=== PATIENT | female | born 1950 | race Caucasian/White ===

== ENCOUNTER 2016-11-16 20:19 | Emergency (ER) | payer OTHER, MEDICARE ==
[2016-11-16 20:34] VITALS: BP 198/84; PULSE 76; RESP 16; TEMP 97.6
--- NOTE | 2016-11-16 21:09 | XR ---
EXAMINATION TYPE: XR hand complete LT DATE OF EXAM: 11/16/2016 COMPARISON: NONE HISTORY: Bruising and pain TECHNIQUE: 3 views FINDINGS: There is soft tissue swelling on the dorsum of the hand. Metacarpals appear intact. I see n o fracture nor dislocation. IMPRESSION: Soft tissue swelling. No fracture seen.
--- NOTE | 2016-11-16 21:21 | ED ---
Upper Extremity HPI - General Chief Complaint: Extremity Injury, Upper Stated Complaint: Lump on L hand Time Seen by Provider: 11/16/16 20:57 Source: patient Mode of arrival: ambulatory Limitations: no limitations - History of Present Illness Initial Comments: Patient is a right-handed 66-year-old female presenting to the emergency department with complaints of hematoma to dorsum of left hand. Patient states she was playing with her grandkids and may hit her hand against a refrigerator early on in the afternoon. Patient states that approximately 20 minutes prior to arrival she noticed that her left hand started developing a hematoma. Patient currently denies pain. No history of fevers, chills, recent illness, nausea, vomiting, shortness of breath, chest pain, abdominal pain, numbness or tingling. Patient states she is able to move all her fingers. Patient states she applied ice prior to arrival. No history of similar symptoms. - Related Data Home Medications Medication Instructions Recorded Confirmed Aspirin 81 mg PO DAILY 01/22/14 11/16/16 Atenolol [Tenormin] 25 mg PO DAILY 01/22/14 11/16/16 Chlorthalidone [Hygroton] 25 mg PO DAILY 01/22/14 11/16/16 Gabapentin 600 mg PO DAILY 01/22/14 11/16/16 Glimepiride [Amaryl] 2 mg PO AC-BRKFST 01/22/14 11/16/16 Losartan Potassium 100 mg PO DAILY 01/22/14 11/16/16 Magnesium Oxide [Mag-Ox] 400 mg PO DAILY 01/22/14 11/16/16 Montelukast [Singulair] 10 mg PO DAILY 01/22/14 11/16/16 Omeprazole [PriLOSEC] 20 mg PO AC-BRKFST 01/22/14 11/16/16 Pramipexole [Pramipexole 1 mg PO ONCE 01/22/14 11/16/16 Dihydrochloride] metFORMIN HCL [metFORMIN HCL ER] 1,000 mg PO AC-SUPPER 01/22/14 11/16/16 Previous Rx's Medication Instructions Recorded Clindamycin HCl [Cleocin] 300 mg PO Q6HR #40 cap 01/22/14 Allergies Allergy/AdvReac Type Severity Reaction Status Date / Time adhesive Allergy Rash/Hives Verified 01/22/14 09:35 sulfamethoxazole Allergy Rash/Hives Verified 01/22/14 09:35 [From Bactrim] trimethoprim [From Bactrim] Allergy Rash/Hives Verified 01/22/14 09:35 albuterol AdvReac Unknown Verified 01/22/14 09:35 atorvastatin calcium AdvReac Unknown Verified 01/22/14 09:35 [From Lipitor] Review of Systems ROS Statement: Those systems with pertinent positive or pertinent negative responses have been documented in the HPI. ROS Other: All systems not noted in ROS Statement are negative. Past Medical History Past Medical History: Diabetes Mellitus, Hyperlipidemia, Hypertension Additional Past Medical History / Comment(s): RESTLESS LEGS History of Any Multi-Drug Resistant Organisms: None Reported Past Surgical History: Cholecystectomy, Tubal Ligation Additional Past Surgical History / Comment(s): SKIN CANCER REMOVAL Past Psychological History: No Psychological Hx Reported Smoking Status: Never smoker Past Alcohol Use History: None Reported Past Drug Use History: None Reported General Exam - General Exam Comments Initial Comments: GENERAL: Pt awake and alert, well-appearing, well-nourished, and in no acute distress. HEAD: Atraumatic, normocephalic. EYES: Pupils equal, round, sclera anicteric, conjunctiva are normal. ENT: Oropharynx clear without exudates. Moist mucous membranes. NECK:Normal range of motion, supple without lymphadenopathy. LUNGS: Breath sounds clear to auscultation bilaterally. No wheezes, rales, or rhonchi. HEART: Heart S1, S2, no S3 or S4. Regular rate and rhythm. No murmurs, rubs or gallops. ABDOMEN: Soft, nontender, nondistended, normoactive bowel sounds. No guarding, no rebound. No masses or organomegaly appreciated. MUSCULOSKELETAL: Normal ROM, no tenderness. Strength 5/5. Left hand: Full range of motion. Hematoma to the dorsal aspect of left hand extending from just below the third metacarpal to wrist. NEUROLOGICAL: Pt oriented x 3. Cranial nerves II through XII grossly intact. Strength and sensation grossly intact. PSYCH: Normal mood, normal affect. SKIN: Warm, dry, intact. Normal turgor. Limitations: no limitations Course Vital Signs 11/16/16 20:30 Temperature 97.6 F Pulse Rate 76 Respiratory 16 Rate Blood Pressure 198/84 O2 Sat by Pulse 96 Oximetry Medical Decision Making - Medical Decision Making Hematoma to left dorsal hand. X-ray of left hand with evidence of soft tissue swelling without fracture or dislocation. Patient instructed to continue ice, elevation, and Tylenol for pain if needed. Patient instructed to follow-up with primary care physician. Patient started to return to the emergency department with any new or worsening symptoms such as skin breaking, fevers, numbness or tingling, or significant pain. Patient agrees with treatment plan. Discharge instructions and return parameters reviewed. - Radiology Data Radiology results: report reviewed X-ray left hand: Soft tissue swelling on the dorsum of the hand. Metacarpals appear intact. No fracture or dislocation. Disposition Clinical Impression: Contusion of left hand Disposition: HOME SELF-CARE Condition: Good Instructions: Contusion in Adults (ED) Additional Instructions: Continue ice packs 3-4 times a day for 15-20 minutes. Continue Tylenol for pain. Elevate extremity is much as possible next 24-48 hours. Follow-up with primary care physician as directed. Please return to the emergency department if you notice broken skin, increased numbness or tingling, hand getting cold, increased pain. Referrals: Gill Melo MD [Primary Care Provider] - 1-2 days Time of Disposition: 21:34
== END 2016-11-16 21:39 | disposition home or self-care (01) ==
LOC: EC 20:19
DX: S60.222A Contusion of left hand, initial encounter (principal); W22.8XXA Striking against or struck by other objects, initial encounter; E11.9 Type 2 diabetes mellitus without complications; E78.5 Hyperlipidemia, unspecified; I10 Essential (primary) hypertension; Z79.899 Other long term (current) drug therapy; Z79.82 Long term (current) use of aspirin; Z79.84 Long term (current) use of oral hypoglycemic drugs; Z88.1 Allergy status to other antibiotic agents; Z88.2 Allergy status to sulfonamides; Z88.8 Allergy status to other drugs, medicaments and biological substances; G25.81 Restless legs syndrome; Z85.828 Personal history of other malignant neoplasm of skin
CPT/HCPCS: 99283

== ENCOUNTER → 2017-06-13 | Outpatient (CLI) | payer OTHER, MEDICARE ==
--- NOTE | 2017-06-14 10:38 | BD ---
EXAMINATION TYPE: MG DEXA axial skeleton. DATE OF EXAM: 06/13/2017 COMPARISON: NONE CLINICAL HISTORY: Postmenopausal female. Osteoporosis screening. Height: 61 Weight: 220.5 FRAX RISK QUESTIONS: Alcohol (3 or more units per day): no Family History (Parent hip fracture): no Glucocorticoids (More than 3mos): no (Ex: prednisone, prednisolone, methylprednisolone, dexamethasone, and hydrocortisone). History of Fracture in Adulthood: no Secondary Osteoporosis: 1. Type 1 Diabetes: no 2. Hyperthyroidism: no 3. Menopause before 45: no 4. Malnutrition: no 5. Chronic liver disease: no Rheumatoid Arthritis: no Current Tobacco Use: no RISK FACTORS HISTORY OF: Surgery to Spine/Hip(right/left)/Wrist (right/left): no Family History of Osteoporosis: no Active: yes Diet low in dairy products/other sources of calcium: no Postmenopausal woman: age 46 Lost more than 2 inches in height since high school: no Frequent falls: no Poor Health: no Hyperparathyroidism: no Adrenal Insufficiency: no MEDICATIONS: diabetic meds, blood pressure meds, neurotin, acid reflux med Additional History: EXAM MEASUREMENTS: Bone mineral densitometry was performed using the [facility] System. Bone mineral density as measured about the Lumbar spine is: ----- L1-L4(G/cm2): 1.598 T Score Values are as follows: ----- L2: 2.8 ----- L3: 3.3 ----- L4: 3.9 ----- L1-L4: 3.3 Bone mineral density has: baseline Bone mineral density about the R hip (g/cm2): 1.060 Bone mineral density about the L hip (g/cm2): 0.972 T Score values are as follows: -----R Neck: 0.2 -----L Neck: -0.5 -----R Total: 0.7 -----L Total: 0.6 Bone mineral density has: : baseline IMPRESSION: Normal (Values between +1 and -1 indicate normal bone mass). Consider repeating this study in 5 year s or sooner if there is some new clinical indication. NOTE: T-SCORE=SD OF THE YOUNG ADULT MEAN.
--- NOTE | 2017-06-19 07:54 | MM ---
Reason for exam: screening (asymptomatic). Last mammogram was performed 4 years and 9 months ago. History: Patient is postmenopausal and history of other cancer. Family history of breast cancer in daughter at age 32. Physical Findings: A clinical breast exam by your physician is recommended on an annual basis and results should be correlated with mammographic findings. MG 3D Screening Mammo W/Cad Bilateral CC and MLO view(s) were taken. Prior study comparison: August 26, 2012, mammogram, performed at [facility]. August 14, 2012, mammogram, performed at [facility]. There are scattered fibroglandular densities. No suspicious abnormality. No significant changes when compared with prior studies. ASSESSMENT: Negative, BI-RAD 1 RECOMMENDATION: Routine screening mammogram of both breasts in 1 year.
== END | disposition home or self-care (01) ==
LOC: RADMAMWWP 12:43
PROVIDERS: ATTEND Family Medicine
DX: Z12.31 Encounter for screening mammogram for malignant neoplasm of breast (principal); Z78.0 Asymptomatic menopausal state
CPT/HCPCS: 77063; 77067; 77080

== ENCOUNTER → 2017-12-03 | Outpatient (CLI) | payer MEDICARE, OTHER ==
[2017-12-03 12:01] LABS: HGB 13.8 gm/dL (11.4-16.0); MCH 27.4 pg (25.0-35.0); MCHC 32.9 g/dL (31.0-37.0); MCV 83.5 fL (80.0-100.0); Mean Platelet Volume 8.1; Platelet Count 357 k/uL (150-450); RBC 5.03 m/uL (3.80-5.40); RDW 13.7 % (11.5-15.5); WBC 6.7 k/uL (3.8-10.6)
[2017-12-03 12:21] LABS: Appearance,Urine Cloudy (Clear); Bacteria,Urine Moderate /hpf; Bilirubin,Urine Negative (Negative); Blood,Urine Negative (Negative); Color,Urine Yellow; Glucose,Urine (UA) Negative (Negative); INR 1.1 (<1.2); Ketones,Urine Negative (Negative); Leukocyte Esterase,Urine Small (Negative); Mucus,Urine Occasional /hpf; Nitrite,Urine Negative (Negative); PH, Urine 6.5 (5.0-8.0); Partial Thromboplastin Time 22.7 sec (22.0-30.0); Protein,Urine Negative (Negative); Prothrombin Time 10.7 sec (9.0-12.0); Specific Gravity,Urine 1.016 (1.001-1.035); Squamous Epithelial Cell,Urine 10 /hpf (0-4); WBC,Urine 5 /hpf (0-5)
[2017-12-03 12:23] LABS: ALT 93 U/L (9-52); AST 107 U/L (14-36); Alkaline Phosphatase 73 U/L (38-126); Anion Gap 13 mmol/L; Blood Urea Nitrogen 15 mg/dL (7-17); Calcium 9.8 mg/dL (8.4-10.2); Carbon Dioxide 26 mmol/L (22-30); Chloride 100 mmol/L (98-107); Glucose 178 mg/dL (74-99); Sodium 139 mmol/L (137-145); Total Bilirubin 0.3 mg/dL (0.2-1.3); Total Protein 6.8 g/dL (6.3-8.2)
== END | disposition home or self-care (01) ==
LOC: LABPAT 11:07
PROVIDERS: ATTEND Orthopaedic Surgery
DX: Z01.812 Encounter for preprocedural laboratory examination (principal); Z79.01 Long term (current) use of anticoagulants
CPT/HCPCS: 36415; 80053; 81001; 85027; 85610; 85730; 87070

== ENCOUNTER 2017-12-17 05:38 | Inpatient (IN) | payer MEDICARE, OTHER ==
[2017-12-04 13:35] VITALS: BMI 41.1
[~2017-12-17 05:38] MED LIST: MIDAZOLAM 2 MG/2 ML VIAL IV PRN; ceFAZolin IN SWFI 2 GM/20 ML SYRINGE IVP ONE; fentaNYL (PF) 50 MCG/ML 2 ML AMP IV PRN
[2017-12-17] MEDS: LACTATED RINGERS 1,000 ML IV SCH ×4 (06:49→18:44)
[2017-12-17] MEDS ORDERED: LIDOCAINE 1% 20 ML VIAL (10MG/ML) FOR IV START INTRADERMA ONE (06:50)
[2017-12-17 06:51] LABS: Glucose,Whole Blood 193 mg/dL (75-99)
[2017-12-17] MEDS: ONDANSETRON 4 MG/2 ML VIAL IVP ONE ×2 (07:03→11:18)
[2017-12-17] MEDS: DEXAMETHASONE SOD PHOSPHATE 10 MG/ML 1 ML VIAL IV ONE ×2 (07:03→11:18)
[2017-12-17] MEDS ORDERED: DEXTROSE 50%-WATER 50 ML VIAL IV ONE (07:36)
[2017-12-17] MEDS ORDERED: BUPIVACAINE (PF) 0.75% 10 ML VIAL ONE (07:36)
[2017-12-17] MEDS ORDERED: MORPHINE SULFATE (PF) 0.3 MG/0.3 ML SYR ONE (07:36)
[2017-12-17] MEDS ORDERED: fentaNYL (PF) 50 MCG/ML 2 ML AMP ONE (07:36)
[2017-12-17] MEDS ORDERED: MIDAZOLAM 2 MG/2 ML VIAL ONE (07:36)
[2017-12-17] MEDS ORDERED: ceFAZolin 3,000 MG in SODIUM CHLORIDE 0.9% IRRIGATIO 3,000 ML IRRIGATION ONE (08:09)
[2017-12-17] MEDS ORDERED: LACTATED RINGERS 1,000 ML IV ONE (08:59)
[2017-12-17 10:04] LABS: Glucose,Whole Blood 233 mg/dL (75-99)
[2017-12-17] MEDS ORDERED: INSULIN ASPART 100 UNIT/ML 1 ML 10 ML VIAL SQ ONE (10:20)
--- NOTE | 2017-12-17 10:30 | XR ---
Left knee HISTORY: Status post total knee arthroplasty 2 views of the left knee Bone mineralization is maintained. Patient is status post left knee arthroplasty. There is anatomic a lignment. Lucency in the soft tissues compatible with postop state, there is soft tissue swelling. IMPRESSION: Orthopedic follow-up.
[2017-12-17] MEDS ORDERED: BISACODYL 10 MG SUPP RECTAL PRN (10:33)
[2017-12-17] MEDS ORDERED: MAGNESIUM HYDROXIDE 2,400 MG/10 ML CUP PO PRN (10:33)
[2017-12-17] MEDS ORDERED: HYDROmorphone 1 MG/ML 1 ML SYRINGE IVP PRN ×2 (10:33)
[2017-12-17] MEDS ORDERED: HYDROcodone/APAP 5-325MG 1 EACH TAB PO PRN (10:33)
[2017-12-17] MEDS ORDERED: NA PHOS,M-B/NA PHOS,DI-BA 133 ML ENEMA RECTAL PRN (10:33)
[2017-12-17] MEDS ORDERED: NALOXONE 0.4 MG/ML 1 ML VIAL IV PRN (10:33)
[2017-12-17] MEDS ORDERED: TEMAZEPAM 15 MG CAP PO PRN (10:33)
[2017-12-17] MEDS ORDERED: ONDANSETRON 4 MG/2 ML VIAL IVP PRN (10:33)
[2017-12-17 11:26] LABS: Glucose,Whole Blood 236 mg/dL (75-99)
[2017-12-17] MEDS: HYDROcodone/APAP 5-325MG 1 EACH TAB PO PRN ×2 (11:38→18:18)
[2017-12-17] MEDS: HYDROmorphone 1 MG/ML 1 ML SYRINGE IVP PRN ×3 (12:29→19:48)
[2017-12-17] MEDS: metFORMIN 500 MG TAB PO SCH (12:59)
[2017-12-17] MEDS: INSULIN ASPART 100 UNIT/ML 1 ML 10 ML VIAL SQ SCH ×3 (12:59→21:14)
[2017-12-17] MEDS: ceFAZolin IN SWFI 2 GM/20 ML SYRINGE IVP SCH (15:47)
[2017-12-17] MEDS: OXYBUTYNIN CHLORIDE 5 MG TAB PO SCH ×3 (15:48→21:14)
[2017-12-17] MEDS: GABAPENTIN 400 MG CAP PO SCH ×3 (15:48→21:13)
--- NOTE | 2017-12-17 16:18 | CONS ---
CONSULTATION REASON FOR CONSULTATION: Advice regarding diabetes mellitus and other medical issues requested by Dr. Perdomo. HISTORY OF PRESENT ILLNESS: This is a 67-year-old woman with a past medical history of multiple medical problems, history of diabetes mellitus, DVT, GERD, hypertension, hyperlipidemia, being followed by Dr. Gill Melo in the outpatient setting was admitted after left total knee arthroplasty. Blood sugars are slightly elevated in 200s at this time. The patient also complaining of severe pain also. There is no history of fever, rigors. No headache, loss of consciousness, seizures. PAST MEDICAL HISTORY: Diabetes, DVT, GERD, hypertension, history of DJD, restless legs syndrome. MEDICATIONS: Prior to admission include home medications are: 1. Dulcolax. 2. Metformin 1000 mg p.o. b.i.d. 3. Mirapex 1 mg q.h.s. 4. Iron sulfate 1 p.o. daily. 5. Ditropan 5 mg p.o. q.i.d. 6. Prilosec 20 mg a.c. breakfast. 7. Magnesium oxide 400 mg p.o. daily. 8. Losartan 100 mg p.o. daily. 9. Tradjenta 5 mg p.o. daily. 10.Amaryl 2 mg q.h.s. 11.Gabapentin 200 mg p.o. q.i.d. 12.Hygroton 25 mg p.o. daily. 13.Tenormin 25 mg. 14.Aspirin 81 mg p.o. daily. ALLERGIES: Are BACTRIM, ALBUTEROL, LIPITOR. FAMILY HISTORY: History of skin cancer. SOCIAL HISTORY: No history of smoking. No alcohol intake. REVIEW OF SYSTEMS: ENT: No diminished or vision. CARDIOVASCULAR: No angina. RESPIRATORY: No cough. GI: No nausea. : No dysuria. NERVOUS SYSTEM: No numbness or weakness. ALLERGY/IMMUNOLOGY: No asthma. MUSCULOSKELETAL: As mentioned earlier. HEMATOLOGY/ONCOLOGY: No history of anemia. ENDOCRINE: As mentioned earlier. CONSTITUTIONAL: As mentioned. DERMATOLOGY: Negative. RHEUMATOLOGY: Negative. PSYCHIATRY: As mentioned earlier. PHYSICAL EXAMINATION: Alert, oriented x3. Pulse 70, blood pressure 116/54, respirations 16, temperature 97.4, pulse ox 94% on room air. HEENT: Conjunctivae normal. Oral mucosa moist. NECK: No jugular venous distention. No carotid bruit. No lymph node enlargement. CARDIOVASCULAR: S1, S2. RESPIRATORY: Breath sounds diminished in the bases. No rhonchi, no crackles. ABDOMEN: Soft, nontender. No mass palpable. LEGS: Status post left knee arthroplasty. NERVOUS SYSTEM: Higher functions as mentioned. Moves all 4 limbs. No focal motor deficits. LYMPHATICS: No lymphadenopathy in the neck, axillae, groin. SKIN: No ulcer, rashes or bleeding. LABS: At this time shows glucose 230, 330. ASSESSMENT: 1. Status post left total knee arthroplasty. 2. Diabetes mellitus type 2. 3. Deep venous thrombosis history. 4. History of gastroesophageal reflux disease. 5. Hypertension. 6. History of degenerative joint disease. 7. Sleep apnea. 8. Restless leg syndrome. 9. History of CPAP. 10.History of cholecystectomy. 11.History of cardiac catheterization. 12.FULL CODE. RECOMMENDATIONS AND DISCUSSION: In this 67-year-old woman who presented with multiple medical problems, at this time I recommend to continue current management and symptomatic treatment. Otherwise at this time I recommend resume the diabetes medication. Accu-Cheks a.c., at bedtime and NovoLog scale. DVT prophylaxis. Monitor closely. Pain management per Orthopedic Surgery. Further recommendations to follow. MMODL / IJN: [id number] /
[2017-12-17 16:59] LABS: Glucose,Whole Blood 282 mg/dL (75-99)
[2017-12-17] MEDS ORDERED: WARFARIN 5 MG TAB PO ONE (18:00)
[2017-12-17 20:50] LABS: Glucose,Whole Blood 290 mg/dL (75-99)
[2017-12-17] MEDS: SENNOSIDES-DOCUSATE SODIUM 1 EACH TAB PO SCH (21:13)
[2017-12-17] MEDS: GLIMEPIRIDE 2 MG TAB PO SCH (21:14)
[2017-12-17] MEDS: PRAMIPEXOLE 1 MG TAB PO SCH (21:14)
[2017-12-18] MEDS: HYDROcodone/APAP 5-325MG 1 EACH TAB PO PRN ×4 (00:03→20:57)
[2017-12-18] MEDS: ceFAZolin IN SWFI 2 GM/20 ML SYRINGE IVP SCH (00:03)
[2017-12-18] MEDS: HYDROmorphone 1 MG/ML 1 ML SYRINGE IVP PRN ×2 (03:55→10:16)
[2017-12-18] MEDS: LACTATED RINGERS 1,000 ML IV SCH ×3 (03:57→18:17)
[2017-12-18 07:06] LABS: Glucose,Whole Blood 186 mg/dL (75-99)
[2017-12-18 07:20] LABS: Basophils % (A) 0 %; Eosinophils # (A) 0.1 k/uL (0-0.7); Eosinophils % (A) 1 %; HCT 35.5 % (34.0-46.0); HGB 11.5 gm/dL (11.4-16.0); Lymphocytes # (A) 2.4 k/uL (1.0-4.8); Lymphocytes % (A) 24 %; MCHC 32.4 g/dL (31.0-37.0); MCV 83.4 fL (80.0-100.0); Mean Platelet Volume 8.2; Monocytes # (A) 0.5 k/uL (0-1.0); Monocytes % (A) 5 %; Neutrophils # (A) 6.8 k/uL (1.3-7.7); Neutrophils % (A) 69 %; Platelet Count 316 k/uL (150-450); RBC 4.25 m/uL (3.80-5.40); RDW 13.7 % (11.5-15.5); WBC 9.9 k/uL (3.8-10.6)
[2017-12-18 07:28] LABS: INR 1.5 (<1.2); Prothrombin Time 13.9 sec (9.0-12.0)
--- NOTE | 2017-12-18 08:54 | P.PN ---
Subjective Progress Note Date: 12/18/17 Principal diagnosis: Status post left total knee arthroplasty This is a 67 year-old female post left total knee arthroplasty. This is post- op day 1. The patient was evaluated at the bedside today. The patient denies nausea, vomiting, abdominal pain, shortness of breath, and chest pain this morning. She states her pain is controlled at this time. The patient has not been up with physical therapy. Objective - Vital Signs Vital signs: Vital Signs Temp 97.4 F L 12/18/17 08:34 Pulse 91 12/18/17 08:34 Resp 16 12/18/17 08:34 BP 114/54 12/18/17 08:34 Pulse Ox 92 L 12/18/17 08:34 Intake & Output 12/17/17 12/18/17 12/18/17 18:59 06:59 18:59 Intake Total 1701 Output Total 300 950 Balance 1401 -950 Weight 98.883 kg 98.883 kg Intake: IV 1201 Intake, IV Titration 500 Amount Lactated Ringers 1,000 ml 500 @ 100 mls/hr IV .Q10H [facility] Rx#:[id number] Output: Urine 150 950 Estimated Blood Loss 150 Other: Voiding Method Indwelling Catheter Indwelling Catheter - Exam The patient does not appear in acute distress. Alert and orientated x3. Dressing is clean dry and intact. Incision appears fine with no erythema or active drainage. Calf is soft and nontender. Good foot and ankle motion without difficulty. Sensation and circulatory status is intact. - Labs CBC & Chem 7: 12/18/17 06:52 Labs: Abnormal Lab Results - Last 24 Hours (Table) 12/17/17 12/17/17 12/17/17 Range/Units 10:02 11:23 16:55 POC Glucose (mg/dL) 233 H 236 H 282 H (75-99) mg/dL 12/17/17 12/18/17 Range/Units 20:42 07:00 POC Glucose (mg/dL) 290 H 186 H (75-99) mg/dL Assessment and Plan (1) Primary localized osteoarthritis of left knee Current Visit: Yes Status: Acute Code(s): M17.12 - UNILATERAL PRIMARY OSTEOARTHRITIS, LEFT KNEE SNOMED Code(s): 681453412 (2) Status post total knee replacement, left Current Visit: Yes Status: Acute Code(s): Z96.652 - PRESENCE OF LEFT ARTIFICIAL KNEE JOINT SNOMED Code(s): 3363542927633 Plan: 1. Continue pain control 2. Anticoagulation with Coumadin per protocol 3. Start CPM, physical therapy, and ambulation 4. Anticipate discharge home in the next 1-2 days
[2017-12-18] MEDS: INSULIN ASPART 100 UNIT/ML 1 ML 10 ML VIAL SQ SCH ×4 (08:58→20:58)
[2017-12-18] MEDS: metFORMIN 500 MG TAB PO SCH ×2 (08:59→19:11)
[2017-12-18] MEDS: ATENOLOL 25 MG TAB PO SCH (09:00)
[2017-12-18] MEDS: ASPIRIN 81 MG PO SCH (09:00)
[2017-12-18] MEDS: CHLORTHALIDONE 25 MG TAB PO SCH (09:00)
[2017-12-18] MEDS: PANTOPRAZOLE 40 MG TABLET PO SCH (09:00)
[2017-12-18] MEDS: LINAGLIPTIN 5 MG TABLET PO SCH (09:01)
[2017-12-18] MEDS: LOSARTAN 50 MG TAB PO SCH (09:02)
[2017-12-18] MEDS: MAGNESIUM OXIDE 400 MG TAB PO SCH (09:03)
[2017-12-18] MEDS: OXYBUTYNIN CHLORIDE 5 MG TAB PO SCH ×4 (09:03→20:58)
[2017-12-18] MEDS: GABAPENTIN 400 MG CAP PO SCH ×4 (09:08→20:57)
[2017-12-18 11:45] LABS: Glucose,Whole Blood 265 mg/dL (75-99)
--- NOTE | 2017-12-18 12:49 | PN ---
PROGRESS NOTE DATE OF SERVICE: 12/18/2017 This 67-year-old woman was admitted after left total knee arthroplasty improved significantly. No chest pain or palpitation. No fever. PHYSICAL EXAM: On exam, alert and oriented x3. Pulse is 91, blood pressure 114/54, respiration 16, temperature 97.4, pulse ox 92% on room air. HEENT: Conjunctivae normal. NECK: No jugular venous distention. CARDIOVASCULAR: S1 and S2 muffled. RESPIRATORY: Breath sounds diminished at the bases. No rhonchi, no crackles. ABDOMEN: Soft. LEGS: Status post surgery. NERVOUS SYSTEM: No focal deficits. LABS: INR 1.5. Accu-Cheks noted, 186, 265. ASSESSMENT: 1. Status post left total knee arthroplasty. 2. Diabetes mellitus type 2. 3. History of deep vein thrombosis. 4. History of gastroesophageal reflux disease. 5. Hypertension. 6. History of degenerative joint disease. 7. Sleep apnea. 8. Restless leg syndrome. 9. History of CPAP. 10.History of cholecystectomy. 11.History of cardiac catheterization. 12.FULL CODE. RECOMMENDATIONS AND DISCUSSION: Recommend to continue current medications. Continue with monitoring and symptomatic treatment. Otherwise at this time I recommend continue with current medications. Monitor blood sugars, insulin coverage. Otherwise hemoglobin A1c is not available. Recommend close follow up in the outpatient setting. DVT prophylaxis. Incentive spirometry. Further recommendations to follow. MMODL / IJN: [id number] /
[2017-12-18 13:23] LABS: Hemoglobin A1C 7.9 % (4.0-6.0)
[2017-12-18] MEDS: hydrOXYzine PAMOATE 25 MG CAP PO PRN ×2 (14:24→20:58)
[2017-12-18 16:59] LABS: Glucose,Whole Blood 164 mg/dL (75-99)
[2017-12-18] MEDS ORDERED: WARFARIN 5 MG TAB PO ONE (18:00)
[2017-12-18 19:53] LABS: Glucose,Whole Blood 183 mg/dL (75-99)
[2017-12-18] MEDS: SENNOSIDES-DOCUSATE SODIUM 1 EACH TAB PO SCH (20:57)
[2017-12-18] MEDS: PRAMIPEXOLE 1 MG TAB PO SCH (20:58)
[2017-12-18] MEDS: GLIMEPIRIDE 2 MG TAB PO SCH (20:58)
[2017-12-19 00:45] LABS: Glucose,Whole Blood 134 mg/dL (75-99)
[2017-12-19] MEDS: HYDROmorphone 1 MG/ML 1 ML SYRINGE IVP PRN (01:09)
[2017-12-19] MEDS: LACTATED RINGERS 1,000 ML IV SCH ×5 (03:48→23:52)
[2017-12-19 06:50] LABS: INR 1.6 (<1.2); Prothrombin Time 14.9 sec (9.0-12.0)
[2017-12-19 06:53] LABS: Glucose,Whole Blood 184 mg/dL (75-99)
[2017-12-19] MEDS: ATENOLOL 25 MG TAB PO SCH (08:36)
[2017-12-19] MEDS: GABAPENTIN 400 MG CAP PO SCH ×4 (08:36→21:45)
[2017-12-19] MEDS: metFORMIN 500 MG TAB PO SCH ×2 (08:36→17:48)
[2017-12-19] MEDS: OXYBUTYNIN CHLORIDE 5 MG TAB PO SCH ×4 (08:37→21:45)
[2017-12-19] MEDS: ASPIRIN 81 MG PO SCH (08:37)
[2017-12-19] MEDS: INSULIN ASPART 100 UNIT/ML 1 ML 10 ML VIAL SQ SCH ×4 (08:37→21:44)
[2017-12-19] MEDS: MAGNESIUM OXIDE 400 MG TAB PO SCH (08:37)
[2017-12-19] MEDS: LOSARTAN 50 MG TAB PO SCH (08:37)
[2017-12-19] MEDS: HYDROcodone/APAP 5-325MG 1 EACH TAB PO PRN (08:37)
[2017-12-19] MEDS: LINAGLIPTIN 5 MG TABLET PO SCH (08:38)
[2017-12-19] MEDS: CHLORTHALIDONE 25 MG TAB PO SCH (08:38)
[2017-12-19] MEDS: PANTOPRAZOLE 40 MG TABLET PO SCH (08:39)
[2017-12-19] MEDS: hydrOXYzine PAMOATE 25 MG CAP PO PRN ×2 (08:44→19:11)
[2017-12-19] MEDS ORDERED: HYDROcodone/APAP 7.5-325MG 1 EACH TAB PO PRN (08:56)
--- NOTE | 2017-12-19 09:01 | P.PN ---
Subjective Progress Note Date: 12/19/17 Principal diagnosis: Status post left total knee arthroplasty This is a 67 year-old female post left total knee arthroplasty. This is post- op day 2. The patient was evaluated at the bedside today. The patient denies nausea, vomiting, abdominal pain, shortness of breath, and chest pain this morning. She states her pain is moderately controlled at this time. The patient has been up with physical therapy. Objective - Vital Signs Vital signs: Vital Signs Temp 97.6 F 12/19/17 00:31 Pulse 100 12/19/17 00:31 Resp 17 12/19/17 00:31 BP 136/60 12/19/17 00:31 Pulse Ox 93 L 12/19/17 00:31 Intake & Output 12/18/17 12/19/17 12/19/17 18:59 06:59 18:59 Intake Total 600 400 Balance 600 400 Weight 98.883 kg Intake: Intake, IV Titration 100 Amount Lactated Ringers 1,000 ml 100 @ 100 mls/hr IV .Q10H [facility] Rx#:[id number] Oral 500 400 Other: # Voids 1 - Exam The patient does not appear in acute distress. Alert and orientated x3. Dressing is intact. There is slight sanginous drainage from the proximal end of the incision. Incision appears fine with no erythema or active drainage. Calf is soft and nontender. Good foot and ankle motion without difficulty. Sensation and circulatory status is intact. - Labs CBC & Chem 7: 12/18/17 06:52 Labs: Abnormal Lab Results - Last 24 Hours (Table) 12/18/17 12/18/17 12/18/17 Range/Units 06:52 06:52 11:43 PT 13.9 H (9.0-12.0) sec INR 1.5 H (<1.2) POC Glucose (mg/dL) 265 H (75-99) mg/dL Hemoglobin A1c 7.9 H (4.0-6.0) % 12/18/17 12/18/17 12/19/17 Range/Units 16:52 19:48 00:43 PT (9.0-12.0) sec INR (<1.2) POC Glucose (mg/dL) 164 H 183 H 134 H (75-99) mg/dL Hemoglobin A1c (4.0-6.0) % 12/19/17 12/19/17 Range/Units 06:29 06:50 PT 14.9 H (9.0-12.0) sec INR 1.6 H (<1.2) POC Glucose (mg/dL) 184 H (75-99) mg/dL Hemoglobin A1c (4.0-6.0) % Assessment and Plan (1) Primary localized osteoarthritis of left knee Current Visit: Yes Status: Acute Code(s): M17.12 - UNILATERAL PRIMARY OSTEOARTHRITIS, LEFT KNEE SNOMED Code(s): 919975229 (2) Status post total knee replacement, left Current Visit: Yes Status: Acute Code(s): Z96.652 - PRESENCE OF LEFT ARTIFICIAL KNEE JOINT SNOMED Code(s): 4016422703602 Plan: 1. Continue pain control, increase to [place] 7.5 2. Anticoagulation with Coumadin per protocol 3. Continue CPM, physical therapy, and ambulation 4. Anticipate discharge home with homecare, likely tomorrow.
[2017-12-19 11:11] LABS: Glucose,Whole Blood 242 mg/dL (75-99)
--- NOTE | 2017-12-19 13:53 | PN ---
PROGRESS NOTE DATE OF SERVICE: 12/19/2017. INTERVAL HISTORY: This 67-year-old woman was admitted after left total knee arthroplasty, improved significantly. No chest pain. No palpitations. No fever. PHYSICAL EXAM: Alert and oriented x3. Pulse is 106. Blood pressure 116/65, respiration 18, temperature 98.8, pulse ox 98% on 2 L. HEENT: Conjunctivae normal. NECK: No jugular venous distention. CARDIOVASCULAR: S1, S2. RESPIRATORY: Breath sounds diminished in the bases. No rhonchi, no crackles. ABDOMEN: Soft, nontender. LEGS: No edema, status post surgery. NERVOUS SYSTEM: No focal deficits. LABS: Hemoglobin A1c 7.9. Glucose noted. ASSESSMENT: 1. Status post left total knee arthroplasty. 2. Diabetes type 2. 3. History of deep vein thrombosis. 4. History of gastroesophageal reflux disease. 5. Hypertension. 6. History of degenerative joint disease. 7. Sleep apnea. 8. History of restless legs syndrome. 9. History of CPAP. 10.History of cholecystectomy. 11.History of cardiac catheterization. 12.FULL CODE. RECOMMENDATIONS AND DISCUSSION: I recommend to continue with monitoring, symptomatic treatment. I would recommend resume the home medications. Accu-Cheks a.c. and at bedtime and continue to monitor. Closely follow with the primary physician in the outpatient setting. Recommend follow up with Orthopedic Surgery. MMODL / IJN: [id number] /
[2017-12-19 17:08] LABS: Glucose,Whole Blood 157 mg/dL (75-99)
[2017-12-19] MEDS ORDERED: WARFARIN 5 MG TAB PO ONE (18:00)
[2017-12-19] MEDS: HYDROcodone/APAP 7.5-325MG 1 EACH TAB PO PRN (19:11)
[2017-12-19 20:39] LABS: Glucose,Whole Blood 187 mg/dL (75-99)
[2017-12-19] MEDS: GLIMEPIRIDE 2 MG TAB PO SCH (21:44)
[2017-12-19] MEDS: SENNOSIDES-DOCUSATE SODIUM 1 EACH TAB PO SCH (21:45)
[2017-12-19] MEDS: PRAMIPEXOLE 1 MG TAB PO SCH (21:45)
[2017-12-20] MEDS: HYDROcodone/APAP 7.5-325MG 1 EACH TAB PO PRN (05:55)
[2017-12-20] MEDS: hydrOXYzine PAMOATE 25 MG CAP PO PRN (05:55)
[2017-12-20 07:10] LABS: Basophils % (A) 0 %; Eosinophils # (A) 0.2 k/uL (0-0.7); Eosinophils % (A) 2 %; HCT 31.5 % (34.0-46.0); HGB 10.4 gm/dL (11.4-16.0); Lymphocytes # (A) 2.3 k/uL (1.0-4.8); Lymphocytes % (A) 22 %; MCH 26.9 pg (25.0-35.0); MCHC 33.1 g/dL (31.0-37.0); MCV 81.2 fL (80.0-100.0); Mean Platelet Volume 8.1; Monocytes # (A) 0.7 k/uL (0-1.0); Monocytes % (A) 6 %; Neutrophils # (A) 7.1 k/uL (1.3-7.7); Neutrophils % (A) 68 %; Platelet Count 280 k/uL (150-450); RBC 3.88 m/uL (3.80-5.40); RDW 13.9 % (11.5-15.5); WBC 10.5 k/uL (3.8-10.6)
[2017-12-20 07:13] LABS: Glucose,Whole Blood 167 mg/dL (75-99)
[2017-12-20 07:14] LABS: INR 1.6 (<1.2); Prothrombin Time 14.6 sec (9.0-12.0)
[2017-12-20 07:15] VITALS: BP 112/63; PULSE 96; RESP 18; TEMP 98.8
[2017-12-20] MEDS: LACTATED RINGERS 1,000 ML IV SCH (07:54)
[2017-12-20] MEDS: OXYBUTYNIN CHLORIDE 5 MG TAB PO SCH (08:05)
[2017-12-20] MEDS: GABAPENTIN 400 MG CAP PO SCH (08:05)
[2017-12-20] MEDS: ATENOLOL 25 MG TAB PO SCH (08:05)
[2017-12-20] MEDS: metFORMIN 500 MG TAB PO SCH (08:05)
[2017-12-20] MEDS: ASPIRIN 81 MG PO SCH (08:05)
[2017-12-20] MEDS: PANTOPRAZOLE 40 MG TABLET PO SCH (08:05)
[2017-12-20] MEDS: INSULIN ASPART 100 UNIT/ML 1 ML 10 ML VIAL SQ SCH (08:05)
[2017-12-20] MEDS: LOSARTAN 50 MG TAB PO SCH (08:05)
[2017-12-20] MEDS: MAGNESIUM OXIDE 400 MG TAB PO SCH (08:05)
[2017-12-20] MEDS: CHLORTHALIDONE 25 MG TAB PO SCH (08:51)
[2017-12-20] MEDS: LINAGLIPTIN 5 MG TABLET PO SCH (08:51)
--- NOTE | 2017-12-20 09:17 | P.DS ---
Providers Date of admission: 12/17/17 05:38 Expected date of discharge: 12/20/17 Attending physician: Jorge Perdomo Consults: 12/17/17 10:37 Consult Physician Routine Consulting Provider: Gill Melo Consult Reason/Comments: medical management Do you want consulting provider notified?: Yes 12/17/17 10:47 Consult Physician Routine Consulting Provider: Brisa Severino Consult Reason/Comments: medical management Do you want consulting provider notified?: Yes Primary care physician: Gill Melo - Discharge Diagnosis(es) (1) Primary localized osteoarthritis of left knee Current Visit: Yes Status: Acute (2) Status post total knee replacement, left Current Visit: Yes Status: Acute Hospital Course: This is a pleasant 67-year-old female last seen in our office with complaints of left knee pain. Patient has known history of degenerative arthritis of the left knee and presented to discuss options. After discussion and consideration , the patient elected to proceed with a left total knee arthroplasty. Patient was seen preoperatively, and medically cleared for surgery by Dr. Melo. Patient was admitted to [facility] underwent left total knee arthroplasty on 12/17/[address] Perdomo. The procedure was performed without complications or sequelae. The patient is seen and evaluated at bedside today. Pain is well-controlled. Patient has no new complaints today and denies any fevers, chills, nausea, vomiting, or shortness of breath. Vital signs are stable. Dressing is clean dry and intact. Incision looks fine with no erythema or active drainage. There is bleeding and ecchymosis present. Calf is soft and nontender. Patient has full foot and ankle motion without difficulty. Patient's left lower extremity is neurovascularly intact. The patient is orthopedically stable for discharge today. Pertinent Studies: Laboratory Tests 12/20/17 12/20/17 06:41 06:41 WBC 10.5 RBC 3.88 Hgb 10.4 L Hct 31.5 L PT 14.6 H INR 1.6 H Patient Condition at Discharge: Stable Plan - Discharge Summary Discharge Rx Participant: No New Discharge Prescriptions: New Aspirin 325 mg PO DAILY #30 tab Hydrocodone/Acetaminophen [[place] 7.5-325] 1 - 2 tab PO Q4-6H PRN #84 tab PRN Reason: Pain Sennosides-Docusate Sodium [Senokot-S] 2 tab PO DAILY #30 tablet Warfarin [Coumadin] 2.5 mg PO DIRECTED #30 tab No Action metFORMIN HCL [metFORMIN HCL ER] 1,000 mg PO BID Omeprazole [PriLOSEC] 20 mg PO AC-[facility] Chlorthalidone [Hygroton] 25 mg PO DAILY Magnesium Oxide [Mag-Ox] 400 mg PO DAILY Glimepiride [Amaryl] 2 mg PO HS Atenolol [Tenormin] 25 mg PO DAILY Aspirin 81 mg PO DAILY Losartan Potassium 100 mg PO DAILY Gabapentin 1,200 mg PO QID Pramipexole [Mirapex] 1 mg PO HS Oxybutynin Chloride [Ditropan] 5 mg PO QID Linagliptin [Tradjenta] 5 mg PO DAILY Pnv No.95/Ferrous Fum/Folic AC [ Multivitamin Tablet] 1 tab PO DAILY Discharge Medication List Aspirin 81 mg PO DAILY 01/22/14 [History] Atenolol [Tenormin] 25 mg PO DAILY 01/22/14 [History] Chlorthalidone [Hygroton] 25 mg PO DAILY 01/22/14 [History] Gabapentin 1,200 mg PO QID 01/22/14 [History] Glimepiride [Amaryl] 2 mg PO HS 01/22/14 [History] Losartan Potassium 100 mg PO DAILY 01/22/14 [History] Magnesium Oxide [Mag-Ox] 400 mg PO DAILY 01/22/14 [History] Omeprazole [PriLOSEC] 20 mg PO -KFST 01/22/14 [History] metFORMIN HCL [metFORMIN HCL ER] 1,000 mg PO BID 01/22/14 [History] Linagliptin [Tradjenta] 5 mg PO DAILY 12/04/17 [History] Oxybutynin Chloride [Ditropan] 5 mg PO QID 12/04/17 [History] Pnv No.95/Ferrous Fum/Folic AC [ Multivitamin Tablet] 1 tab PO DAILY [History] Pramipexole [Mirapex] 1 mg PO HS 12/04/17 [History] Aspirin 325 mg PO DAILY #30 tab 12/20/17 [Rx] Hydrocodone/Acetaminophen [[place] 7.5-325] 1 - 2 tab PO Q4-6H PRN #84 tab [Rx] Sennosides-Docusate Sodium [Senokot-S] 2 tab PO DAILY #30 tablet 12/20/17 [Rx] Warfarin [Coumadin] 2.5 mg PO DIRECTED #30 tab 12/20/17 [Rx] Follow up Appointment(s)/Referral(s): Jorge Perdomo DO [Doctor of Osteopathic Medicine] - 12/31/17 1:30 pm [facility], [NON-STAFF] - Ambulatory/Diagnostic Orders: Continuous Passive Motion (CPM) Machine [DME.AMB1] Time Frame: 3 Weeks, Location : None Selected Activity/Diet/Wound Care/Special Instructions: Glucometer - [facility]- will deliver to bedside before discharge -Check blood sugars before every meal and at bedtime. Keep a log and take to Dr. Melo at next appointment. Call [facility] once home to arrange delivery of CPM- [phone] Weightbearing as tolerated with a walker Coumadin 2.5 mg 1 by mouth every other day for 7 days then take Aspirin 325mg daily for 1 month CPM 5-6 hours daily-Start CPM at 45 degrees then increase by 5 degrees every time on CPM as patient tolerates. Maximum total of 15 degrees every 24 hours. May shower in 3 days if no drainage from incision Keep incision clean and dry Call [facility] at with questions or concerns Discharge Disposition: HOME WITH HOME HEALTH SERVICES
--- NOTE | 2017-12-20 15:12 | OP ---
OPERATIVE REPORT DATE OF SERVICE: 12/17/2017 SURGEON: DIONY PASTOR D.O. BOAT HOIST OPERATOR HELPER: Henrietta Wells NP PREOPERATIVE DIAGNOSIS:: Degenerative joint disease of the left knee. POSTOPERATIVE DIAGNOSIS:: Degenerative joint disease of the left knee. OPERATION:: Left total knee replacement arthroplasty. PROCEDURE: The patient was taken to the Operative Suite and placed in the supine position. Spinal anesthesia was performed by the Department of Anesthesiology. Betadine prep was carried out over the left knee, mid thigh to mid calf. Sterile drapes applied in the usual manner. Pneumatic tourniquet was inflated to 250 mmHg. A medial parapatellar incision was developed. The medial retinaculum is incised through synovium. Patella is everted and dislocated laterally. The knee was brought in flexion and held in position with leg martin. An intramedullary cutting guide was utilized in preparation for a size 7 left femoral component. The appropriate femoral cut is developed. Provisionary component was impacted in position. The components alignment and stability were well maintained. Tibial cutting guide was brought into position and appropriate wafer cut developed. The menisci, both medial and lateral were excised. A size 4 tibial tray was selected. The 12mm spacer inserted and marked for position. The tray was monitored for position. Appropriate peg hole was drilled in the proximal tibia. The patella was then shaped with a shelving planer. Size 29 mm was selected and the stabilizing peg hole was marked and drilled. A lateral retinacular release was performed through the general position deep in the further tracking should be excellent. Pulsavac antibiotic solution was utilized in preparation for final components. The final size 4 trabecular metal three-hole peg was placed in predrilled holes and the tibial component was intact. Final size 7 left component was packed into position. The patellar component 12 mm placed in predrilled holes and packed in. A final size 12 mm polyethylene component was inserted in position. Appropriate irrigation of the knee was slightly in flexion. The superficial opening of wound and lateral area of retinacular release was cauterized. Hemostasis was well controlled. Tourniquet deflated. The medial retinaculum was approximated with #3 Vicryl suture horizontal mattress fashion. #2 Quill suture was utilized in reinforcing retinaculum in running fashion. 2- 0 Vicryl was utilized for closure of subcuticular tissue. 3-0 Quill suture was utilized in securing the closure. Dermabond was utilized to seal the wound. Betadine, pressure dressing was applied. Tourniquet was deflated and the patient was transferred to Recovery Room in satisfactory postoperative condition. GROSS PATHOLOGY: Presence of tricompartment of degenerative joint disease of the left knee. MMODL / IJN: [id number] / MTDD
[2017-12-20] MEDS ORDERED: WARFARIN 7.5 MG TAB PO ONE (18:00)
--- NOTE | 2017-12-21 09:55 | PN ---
PROGRESS NOTE DATE OF SERVICE: 12/21/2017 This 67-year-old woman was admitted with left knee arthroplasty, improving significantly. No chest pain. No palpitations. No fever. EXAM: Alert and oriented x3. The pulse is 96, blood pressure 112/66, respiration 18, temperature 98.8, pulse ox 94% on room air. HEENT: Conjunctivae normal. CARDIOVASCULAR: S1, S2. RESPIRATORY: Breath sounds diminished in the bases. No rhonchi, no crackles. ABDOMEN: Soft. LEGS: Status post left knee arthroplasty. NERVOUS SYSTEM: No focal deficits. LABS: Hemoglobin 10.4, INR 1.6. ASSESSMENT: 1. Status post left total knee joint arthroplasty. 2. Diabetes mellitus type 2. 3. History of deep vein thrombosis. 4. History of anemia of chronic disease. 5. History of gastroesophageal reflux disease. 6. History of hypertension. 7. History of degenerative joint disease. 8. History of sleep apnea. 9. History of restless leg syndrome. 10.History of CPAP. 11.History of cholecystectomy. 12.History of cardiac catheterization. 13.FULL CODE. RECOMMENDATIONS AND DISCUSSION: I recommend to continue current management and symptomatic treatment. Otherwise I would continue with current medications. Resume the home medications. Closely follow with primary physician in outpatient setting. The rest of the recommendations per Orthopedic Surgery. Further recommendations to follow. MMODL / IJN: [id number] /
== END 2017-12-20 11:58 | disposition home health service (06) | DRG 470 ==
LOC: 2ORMAIN 05:38 → 3SUR 09:57
PROVIDERS: ADMIT Orthopaedic Surgery; ATTEND Orthopaedic Surgery
PROC: 0SRD0JA Replacement of Left Knee Joint with Synthetic Substitute, Uncemented, Open Approach (ICD-10-PCS; principal; 2017-12-17 08:00)
DX: M17.12 Unilateral primary osteoarthritis, left knee (principal); M23.204 Derangement of unspecified medial meniscus due to old tear or injury, left knee; E11.42 Type 2 diabetes mellitus with diabetic polyneuropathy; D63.8 Anemia in other chronic diseases classified elsewhere; I10 Essential (primary) hypertension; E78.5 Hyperlipidemia, unspecified; G47.33 Obstructive sleep apnea (adult) (pediatric); K21.9 Gastro-esophageal reflux disease without esophagitis; G25.81 Restless legs syndrome; Z79.84 Long term (current) use of oral hypoglycemic drugs; Z79.01 Long term (current) use of anticoagulants; Z79.82 Long term (current) use of aspirin; Z79.899 Other long term (current) drug therapy; Z98.51 Tubal ligation status; Z90.49 Acquired absence of other specified parts of digestive tract; Z85.828 Personal history of other malignant neoplasm of skin; Z86.718 Personal history of other venous thrombosis and embolism; Z88.2 Allergy status to sulfonamides; Z88.8 Allergy status to other drugs, medicaments and biological substances; Z82.49 Family history of ischemic heart disease and other diseases of the circulatory system; Z83.3 Family history of diabetes mellitus
CPT/HCPCS: 83036; 85025; 85610; 88300; 94760

== ENCOUNTER → 2018-07-11 | Outpatient (CLI) | payer MEDICARE, OTHER ==
--- NOTE | 2018-07-11 12:30 | XR ---
Cervical spine HISTORY: Dysphagia, pain in left shoulder, left-sided neck and left arm 5 views of the cervical spine. No comparisons Cervical vertebral bodies show preserved height and alignment. C7-T1 is not included on exam. There i s no significant foraminal encroachment. There may be a thoracic scoliosis. Patient is edentulous. Vi sualized disc spaces are maintained. Anterior osteophytes are suspected at C4-5 and C5-6 and C6-7. IMPRESSION: There are some limitations the exam. Cervical MRI or CT may be of benefit.
--- NOTE | 2018-07-11 12:33 | XR ---
Left shoulder HISTORY: Dysphagia, left arm pain and diabetes 3 views of the left shoulder Arthropathy present at the acromioclavicular joint. Calcifications seen superior to the glenohumeral joint. Alignment and bone mineralization, joint spaces maintained. Distal acromial spur is present. L eft lung apex as unremarkable, basilar atelectatic changes are suspected. No fracture or dislocation. IMPRESSION: Correlate for impingement, calcific tendinitis. Shoulder MRI may be of benefit. Possible left lower lobe atelectasis, follow-up suggested.
--- NOTE | 2018-07-11 15:33 | FL ---
EXAMINATION TYPE: FL barium swallow DATE OF EXAM: 07/11/2018 CLINICAL HISTORY: Dysphasia COMPARISON: None TECHNIQUE: A double contrast esophagram is performed utilizing air and barium. Fluoroscopy time: 1 minute 19 seconds Images: 28 FINDINGS: Esophagus dilates to normal caliber has normal contour to the gastroesophageal junction. Th ere are tertiary contractions observed during the study. No stenosis is evident. No intraluminal or e xtramural defects are evident. There is incomplete stripping of the esophageal bolus the horizontal drinking position. IMPRESSION: 1. Presbyesophagus with incomplete stripping of the esophageal bolus in the horizontal drinking posit ion and multiple tertiary contractions distal esophagus.
== END | disposition home or self-care (01) ==
LOC: RADFLWHC 07:58
PROVIDERS: ATTEND Family Medicine
DX: K22.8 Other specified diseases of esophagus (principal); E11.21 Type 2 diabetes mellitus with diabetic nephropathy; M79.602 Pain in left arm; M54.2 Cervicalgia
CPT/HCPCS: 72050; 74220

== ENCOUNTER → 2018-07-16 | Outpatient (CLI) | payer MEDICARE, OTHER ==
[2018-07-16 15:15] LABS: HCT 41.5 % (34.0-46.0); HGB 13.3 gm/dL (11.4-16.0); MCH 26.3 pg (25.0-35.0); MCV 82.2 fL (80.0-100.0); Mean Platelet Volume 7.8; Platelet Count 444 k/uL (150-450); RBC 5.05 m/uL (3.80-5.40); RDW 14.7 % (11.5-15.5); WBC 12.6 k/uL (3.8-10.6)
[2018-07-16 15:26] LABS: Anion Gap 13 mmol/L; Blood Urea Nitrogen 15 mg/dL (7-17); Carbon Dioxide 30 mmol/L (22-30); Chloride 93 mmol/L (98-107); Partial Thromboplastin Time 23.6 sec (22.0-30.0); Potassium 3.7 mmol/L (3.5-5.1); Prothrombin Time 10.8 sec (9.0-12.0); Sodium 136 mmol/L (137-145)
== END | disposition home or self-care (01) ==
LOC: LABPAT 14:06
PROVIDERS: ATTEND Orthopaedic Surgery
DX: Z01.812 Encounter for preprocedural laboratory examination (principal)
CPT/HCPCS: 36415; 80051; 82565; 84520; 85027; 85610; 85730; 87070

== ENCOUNTER → 2018-10-13 | Outpatient (CLI) | payer MEDICARE, OTHER ==
[2018-10-13 12:22] LABS: Appearance,Urine Clear (Clear); Bacteria,Urine Rare /hpf; Bilirubin,Urine Negative (Negative); Blood,Urine Negative (Negative); Budding Yeast,Urine Occasional /hpf; Color,Urine Light Yellow; Glucose,Urine (UA) 4+ (Negative); Ketones,Urine Negative (Negative); Leukocyte Esterase,Urine Negative (Negative); Mucus,Urine Rare /hpf; Nitrite,Urine Positive (Negative); PH, Urine 5.5 (5.0-8.0); Protein,Urine Negative (Negative); Specific Gravity,Urine 1.029 (1.001-1.035); Squamous Epithelial Cell,Urine 1 /hpf (0-4); Urobilinogen,Urine <2.0 mg/dL (<2.0); WBC,Urine 4 /hpf (0-5)
[2018-10-13 12:32] LABS: HCT 44.1 % (34.0-46.0); HGB 13.7 gm/dL (11.4-16.0); MCH 24.9 pg (25.0-35.0); MCHC 31.1 g/dL (31.0-37.0); MCV 80.1 fL (80.0-100.0); Mean Platelet Volume 8.7; Platelet Count 327 k/uL (150-450); RBC 5.51 m/uL (3.80-5.40); RDW 15.3 % (11.5-15.5); WBC 8.5 k/uL (3.8-10.6)
[2018-10-13 12:34] LABS: Partial Thromboplastin Time 23.7 sec (22.0-30.0); Prothrombin Time 10.6 sec (9.0-12.0)
[2018-10-13 14:53] LABS: Albumin 4.1 g/dL (3.5-5.0); Calcium 9.9 mg/dL (8.4-10.2); Potassium 3.5 mmol/L (3.5-5.1); Total Bilirubin 0.6 mg/dL (0.2-1.3); Total Protein 7.3 g/dL (6.3-8.2)
== END | disposition home or self-care (01) ==
LOC: LABPAT 10:50
PROVIDERS: ATTEND Orthopaedic Surgery
DX: Z01.818 Encounter for other preprocedural examination (principal); Z01.812 Encounter for preprocedural laboratory examination; M17.11 Unilateral primary osteoarthritis, right knee
CPT/HCPCS: 80053; 81001; 85027; 85610; 85730; 87070; 93005

== ENCOUNTER → 2018-10-13 | Outpatient (CLI) | payer MEDICARE, OTHER ==
[2018-10-13 16:33] LABS: Albumin 4.2 g/dL (3.80-4.90); Albumin/Globulin Ratio 1.62 (1.60-3.17); Bilirubin, Conjugated 0.2 mg/dL (0.20-0.40); Bilirubin,Unconjugated 0.2 mg/dL; Globulin 2.6 g/dL (1.6-3.3); Total Bilirubin 0.4 mg/dL (0.2-1.2); Total Protein 6.8 g/dL (6.2-8.2)
[2018-10-13 17:41] LABS: Hepatitis A Antibody IgM Non-Reactive (Non-Reactive); Hepatitis B Core IgM Non-Reactive (Non-Reactive)
[2018-10-13 21:14] LABS: Hemoglobin A1C 10.1 % (4.0-6.0)
== END | disposition home or self-care (01) ==
LOC: LABWHC1 10:53
PROVIDERS: ATTEND Family Medicine
DX: Z00.00 Encounter for general adult medical examination without abnormal findings (principal); R94.5 Abnormal results of liver function studies; E11.21 Type 2 diabetes mellitus with diabetic nephropathy; I10 Essential (primary) hypertension
CPT/HCPCS: 36415; 80074; 80076; 83036

== ENCOUNTER → 2018-10-16 | Outpatient (CLI) | payer MEDICARE, OTHER ==
--- NOTE | 2018-10-17 15:09 | MM ---
Reason for exam: screening (asymptomatic). Last mammogram was performed 1 year and 4 months ago. History: Patient is postmenopausal and history of other cancer. Family history of breast cancer in daughter at age 32. Took hormonal contraceptives for 1 year. Physical Findings: A clinical breast exam by your physician is recommended on an annual basis and results should be correlated with mammographic findings. MG 3D Screening Mammo W/Cad Bilateral CC and MLO view(s) were taken. Prior study comparison: June 13, 2017, bilateral MG 3d screening mammo w/cad. August 26, 2012, mammogram, performed at [facility]. There are scattered fibroglandular densities. No suspicious abnormality on the right. Left superior far posterior distortion. ASSESSMENT: Incomplete: need additional imaging evaluation, BI-RAD 0 RECOMMENDATION: Special view mammogram of the left breast. If lesion persists on supplemental views, image directed ultrasound is recommended. [facility] will attempt to contact patient to return for supplemental views and ultrasound if indicated.
== END | disposition home or self-care (01) ==
LOC: RADMAMWWP 15:07
PROVIDERS: ATTEND Family Medicine
DX: Z12.31 Encounter for screening mammogram for malignant neoplasm of breast (principal)
CPT/HCPCS: 77063; 77067

== ENCOUNTER 2018-10-21 09:30 | Day surgery (SDC) | payer MEDICARE, OTHER ==
[2018-10-14 12:20] VITALS: BMI 42.1
[~2018-10-21 09:30] MED LIST changes: +ACETAMINOPHEN TAB 500 MG TAB PO ONE; +DEXAMETHASONE SOD PHOSPHATE 10 MG/ML 1 ML VIAL IV ONE; +HYDROmorphone 0.5 MG/0.5 ML SYRINGE IVP PRN; +MELOXICAM 7.5 MG TAB PO ONE; +ONDANSETRON 4 MG/2 ML VIAL IVP ONE; +ROPIVACAINE 246.25 MG, EPINEPHrine 0.5 MG, KETOROLAC 30 MG, cloNIDine HCL/PF 80 MCG, WA... MISCELLANE ONE; +TRANEXAMIC ACID 1,000 MG in SODIUM CHLORIDE 0.9% 100 ML IVPB ONE; -fentaNYL (PF) 50 MCG/ML 2 ML AMP IV PRN
[2018-10-21] MEDS: LACTATED RINGERS 1,000 ML IV SCH (10:45)
[2018-10-21 11:13] LABS: Glucose,Whole Blood 166 mg/dL (75-99)
--- NOTE | 2018-10-21 11:15 | P.ANPRN ---
Procedure Note - Anesthesia - Nerve Block Performed Right Adductor Canal Infusion Time Out Performed: Yes (10:50) Date of Procedure: 10/21/18 Procedure Start Time: 10:51 Procedure Stop Time: 11:04 Location of Patient Procedure: PACU Indication: Acute Post-Operative Pain, Requested by physician (Dr Ravi Simmons) Sedation Type: Sedate with meaningful contact maintained Preparation: Sterile Prep, Sterile Dressing Position: Supine Catheter Depth at Skin (cm): 2 Catheter: Indwelling Needle Types: Pajunk Needle Gauge: 18 Technique: Ultrasound Injectate: 0.5% Ropivacaine (see comment for volume) (20cc) Blood Aspirated: No Pain Paresthesia on Injection Noted: No Resistance on Injection: Normal Events: Uneventful and Well Tolerated
[2018-10-21] MEDS ORDERED: fentaNYL (PF) 50 MCG/ML 2 ML AMP ONE (11:50)
[2018-10-21] MEDS ORDERED: SODIUM CHLORIDE 0.9% 100 ML BAG ONE (11:50)
[2018-10-21] MEDS ORDERED: TRANEXAMIC ACID 1,000 MG/10 ML VIAL ONE (11:50)
[2018-10-21] MEDS ORDERED: MIDAZOLAM 2 MG/2 ML VIAL ONE (11:50)
[2018-10-21] MEDS ORDERED: PROPOFOL 10 MG/ML 20 ML VIAL IV ONE (11:50)
[2018-10-21] MEDS ORDERED: ceFAZolin 3,000 MG in SODIUM CHLORIDE 0.9% IRRIGATIO 3,000 ML IRRIGATION ONE (11:53)
[2018-10-21] MEDS ORDERED: ONDANSETRON 4 MG/2 ML VIAL IVP PRN (13:16)
[2018-10-21] MEDS ORDERED: HYDROcodone/APAP 5-325MG 1 EACH TAB PO PRN ×2 (13:16)
[2018-10-21] MEDS ORDERED: NA PHOS,M-B/NA PHOS,DI-BA 133 ML ENEMA RECTAL PRN (13:16)
[2018-10-21] MEDS ORDERED: DIAZEPAM 5 MG TAB PO PRN (13:16)
[2018-10-21] MEDS ORDERED: NALOXONE 0.4 MG/ML 1 ML VIAL IV PRN (13:16)
[2018-10-21] MEDS ORDERED: BISACODYL 10 MG SUPP RECTAL PRN (13:16)
[2018-10-21] MEDS ORDERED: hydrOXYzine PAMOATE 25 MG CAP PO PRN (13:16)
[2018-10-21] MEDS ORDERED: MAGNESIUM HYDROXIDE 2,400 MG/10 ML CUP PO PRN (13:16)
[2018-10-21] MEDS ORDERED: HYDROmorphone 0.5 MG/0.5 ML SYRINGE IVP PRN ×3 (13:16)
[2018-10-21] MEDS ORDERED: LACTATED RINGERS 1,000 ML IV ONE (13:30)
--- NOTE | 2018-10-21 13:38 | P.OP ---
Date of Procedure: 10/21/18 Preoperative Diagnosis: Severe osteoarthritis right knee Postoperative Diagnosis: Severe osteoarthritis right knee Procedure(s) Performed: Right total knee arthroplasty Implants: Payan and Nephew Journey II CR Oxinium cruciate retaining femoral component size 5, right [employer]hew Journey right nonporous tibial baseplate size 4 Payan [employer]hew Journey II, XLPE CR articular insert, size 9 mm, Size 3-4 right Payan [employer]hew Journey BCS resurfacing oval patellar component, 29 mm All components were cemented using Palacos R bone cement.. The articulation is Oxinium on polyethylene. Anesthesia: spinal Surgeon: Ravi Simmons Paper Control Clerk #1: Marivel Croft Estimated Blood Loss (ml): 50 Pathology: other (Bone and cartilage) Condition: stable Disposition: PACU Indications for Procedure: After failure of conservative treatment we discussed the surgical and nonsurgical treatment options at length. Patient wishes to proceed with a total knee arthroplasty. Complications specific to this procedure were discussed at length, including but not limited to infection, bleeding, stiffness, and nerve injury. Patient is aware of all these complications and informed consent was obtained Operative Findings: The operative findings are consistent with severe osteoarthritis of the right knee Description of Procedure: Patient was seen in the preoperative area consent was reviewed and operative site was marked with a skin marker. An adductor canal pain catheter was placed by anesthesia in the preoperative area. Patient was then brought to the operating room and given preoperative antibiotics intravenously. A spinal anesthetic was administered by the anesthesia department. A tourniquet was placed on the upper thigh and the lower extremity was prepped and draped in usual sterile fashion. A gram of transexamic acid was given. A universal timeout was then performed which confirmed the patient's name, surgical site, ALLERGIES, and consent. The lower extremity was then exsanguinated and tourniquet was inflated to 250 mmHg. A standard and anterior midline approach to the knee was performed. The skin and subcutaneous tissue was dissected down to the patellar tendon. A medial parapatellar arthrotomy was then performed. The knee was then extended, the patellar was everted, and the knee was again flexed. Anterior horns of both menisci were excised, and a release was performed to the posterior medial aspect of the knee. On gross visual inspection, there was complete loss of articular cartilage in the medial and patellofemoral joint spaces. There was also significant cartilage damage in the lateral compartment. There were multiple periarticular osteophytes which were then removed with a Ronguer. The femoral canal was then opened with the appropriate drill, and the intramedullary femoral cutting guide was then placed and set for 5 of valgus. The distal femoral cutting block was then pinned in place, and the distal femur was then cut. The cutting block was then removed and the cut was checked for flatness. Next, the sizing guide was then placed and set for 3 external rotation based off of the epicondylar axis and Whitesides line. After the femur was sized, the appropriate 4-in-1 cutting block was then pinned in place. The anterior condyles were cut without notching. The posterior and chamfer cuts were performed while protecting the collateral ligaments. The cutting block was then removed, and the femoral canal was plugged with autologous bone. Attention was then directed to the tibia. The remaining ACL was removed with a Ronguer, and the tibia was then gently subluxed forward with a large bent knee retractor. Any remaining menisci was excised. The posterior lateral corner was cauterized in order to cauterize the lateral geniculate artery. The extra medullary tibial cutting guide was then placed, set for the appropriate rotation, slope, and depth of resection. The proximal tibia cutting guide was then pinned in place. Proximal tibia was then cut and sized. Next trials were then placed with the appropriate-sized insert. The knee was able to fully extend and flex to 130 and was stable throughout all range of motion. The knee was then extended, patella everted. Patella was then measured, and then using an osteotomy guide, the patella was cut at the appropriate level. The patella was then measured and drilled and the patella trial was then placed. The knee was then taken through range of motion with the patella trial and the patella tracked normally. The knee was then extended patella trial was then removed and the patella was everted. Knee was then flexed and lug holes were drilled through the femoral trial and the femoral trial was then removed. The tibial was then exposed, and the tibial broach guide was then pinned in place after it was set for the appropriate rotation to allow for the most coverage without overhang. The tibia was then reamed and broached. The cut surfaces of bone were then irrigated with pulsatile lavage. The posterior structures were injected with the ropivacaine solution. The knee was also irrigated with Irrisept solution. The components were then opened, the cement was mixed, and the components were then cemented in place. The cement was allowed to harden with the knee in full extension. While the cement was hardening, the remaining soft tissues were then injected with a ropivacaine solution, which consisted of 246.25 mg of ropivacaine, 0.5 mg of epinephrine, 30 mg of Toradol, 80 g of clonidine, and 48.45 mL of sterile water, for a total of 100 mL of fluid injected. After the cemented hardened. The tourniquet was released, and hemostasis was obtained. A second gram of transexamic acid was given. The knee was again irrigated. The knee was again taken through range of motion and found to be stable throughout all range of motion of 0-130, and the patella tracked normally. The fascia was then closed with #2 strata fix suture. The subcutaneous tissue was closed with 3-0 Vicryl and 3-0 strata fix. Dermabond glue was used for the skin and placed with the knee in flexion. The patient was placed in a sterile silver dressing. Patient was then transferred to recovery room in stable condition. The assistant buyer FLAVIO Roque was required due the complexity surgery and the need for a skilled registered nurse surgical services. She assisted in positioning, draping, retraction, and closure of the wound.
[2018-10-21] MEDS ORDERED: ROPIVACAINE 1,100 MG, SODIUM CHLORIDE 0.9% 500 ML 330 ML MISCELLANE PRN ×2 (14:03)
--- NOTE | 2018-10-21 14:26 | XR ---
EXAMINATION TYPE: XR knee limited RT DATE OF EXAM: 10/21/2018 CLINICAL HISTORY: Right knee pain and arthritis status post total knee replacement. TECHNIQUE: Portable AP and crosstable lateral views of the right knee are obtained immediately posto peratively. COMPARISON: None FINDINGS: Metallic hardware from total right knee arthroplasty is seen and appears satisfactory in a lignment and position. There is evidence of recent surgery with diffuse subcutaneous gas and soft ti ssue swelling noted. IMPRESSION: METALLIC HARDWARE FROM TOTAL RIGHT KNEE ARTHROPLASTY IS SATISFACTORY IN ALIGNMENT.
[2018-10-21] MEDS ORDERED: INSULIN ASPART (NovoLOG) 100 UNIT/ML VIAL SQ ONE (14:44)
[2018-10-21 14:50] LABS: Glucose,Whole Blood 242 mg/dL (75-99)
[2018-10-21 16:49] LABS: Glucose,Whole Blood 219 mg/dL (75-99)
--- NOTE | 2018-10-21 16:53 | P.CONS ---
History of Present Illness - Reason for Consult Recommendations regarding antidepressive medications. - History of Present Illness She is admitted for elective right hip arthroplasty excessively underwent surgery. Patient is hypotensive as expected postoperatively because of which I'll hold off losartan and I'll continue her beta taylor patient did take her medications today. Patient did not pass gas did not move her bowel yet denied any dysuria nausea vomiting fever chills cough. Review of Systems REVIEW OF SYSTEMS: CONSTITUTIONAL: No fever, no malaise, no fatigue. HEENT: No recent visual problems or hearing problems. Denied any sore throat. CARDIOVASCULAR: No chest pain, orthopnea, PND, no palpitations, no syncope. PULMONARY: No shortness of breath, no cough, no hemoptysis. GASTROINTESTINAL: No diarrhea, no nausea, no vomiting, no abdominal pain. NEUROLOGICAL: No headaches, no weakness, no numbness. HEMATOLOGICAL: Denies any bleeding or petechiae. GENITOURINARY: Denies any burning micturition, frequency, or urgency. MUSCULOSKELETAL/RHEUMATOLOGICAL: Denies any joint pain, swelling, or any muscle pain. ENDOCRINE: Denies any polyuria or polydipsia. The rest of the 14-point review of systems is negative. Past Medical History Past Medical History: Diabetes Mellitus, Hyperlipidemia, Hypertension Additional Past Medical History / Comment(s): RESTLESS LEGS History of Any Multi-Drug Resistant Organisms: None Reported Past Surgical History: Cholecystectomy, Tubal Ligation Additional Past Surgical History / Comment(s): SKIN CANCER REMOVAL Past Anesthesia/Blood Transfusion Reactions: No Reported Reaction Smoking Status: Never smoker - Past Family History Father Family Medical History: Cancer Additional Family Medical History / Comment(s): skin cancer Mother Family Medical History: Deep Vein Thrombosis (DVT) Medications and Allergies Home Medications Medication Instructions Recorded Confirmed Type Atenolol [Tenormin] 25 mg PO QA 01/22/14 10/14/18 History Chlorthalidone [Hygroton] 25 mg PO DAILY 01/22/14 10/14/18 History Glimepiride [Amaryl] 4 mg PO 01/22/14 10/14/18 History Losartan Potassium 100 mg PO DAILY 01/22/14 10/14/18 History Magnesium Oxide [Mag-Ox] 400 mg PO DAILY 01/22/14 10/14/18 History Omeprazole [PriLOSEC] 20 mg PO HS 01/22/14 10/14/18 History Linagliptin [Tradjenta] 5 mg PO HS 12/04/17 10/14/18 History Oxybutynin Chloride [Ditropan] 5 mg PO TID 12/04/17 10/14/18 History Pnv No.95/Ferrous Fum/Folic AC 1 tab PO DAILY 12/04/17 10/14/18 History [ Multivitamin Tablet] Pramipexole [Mirapex] 1.5 mg PO HS 12/04/17 10/14/18 History Aspirin 81 mg PO DAILY 08/05/18 10/14/18 History Citalopram Hydrobromide 40 mg PO HS 08/05/18 10/14/18 History [Citalopram HBr] Empagliflozin [Jardiance] 10 mg PO HS 08/05/18 10/14/18 History Gabapentin [Neurontin] 800 mg PO TID 08/05/18 10/14/18 History Naproxen 500 mg PO HS 08/05/18 10/14/18 History Saliva Stimulant Agents Comb.3 1 spray MUCOUS MEM DAILY PRN 10/14/18 10/14/18 History [Biotene Moisturizing Mouth] metFORMIN HCL [Glucophage] 1,000 mg PO QAM 10/14/18 10/14/18 History Allergies Allergy/AdvReac Type Severity Reaction Status Date / Time sulfamethoxazole Allergy Rash/Hives Verified 10/21/18 10:47 [From Bactrim] trimethoprim [From Bactrim] Allergy Rash/Hives Verified 10/21/18 10:47 albuterol AdvReac jittery, Verified 10/21/18 10:47 hyper atorvastatin calcium AdvReac muscle Verified 10/21/18 10:47 [From Lipitor] cramps Physical Exam Vitals: Vital Signs Temp Pulse Resp BP BP Pulse Ox 10/21/18 15:16 98.3 F 72 122/56 93 L 10/21/18 14:45 77 16 97/52 10/21/18 14:30 73 16 110/55 95 10/21/18 14:15 71 15 104/53 94 L 10/21/18 14:00 75 16 99/48 94 L 10/21/18 13:55 97.7 F 85 16 105/53 93 L 10/21/18 11:13 68 17 115/58 98 10/21/18 10:04 97.7 F 67 17 127/60 93 L Intake and Output 10/21/18 10/21/18 10/21/18 06:59 14:59 22:59 Intake Total 1501 Output Total 50 Balance 1451 Intake: IV 1501 Output: Estimated Blood Loss 50 Other: Voiding Method Toilet # Voids 1 PHYSICAL EXAMINATION: GENERAL: The patient is alert and oriented x3, not in any acute distress. Well developed, well nourished. HEENT: Pupils are round and equally reacting to light. EOMI. No scleral icterus. No conjunctival pallor. Normocephalic, atraumatic. No pharyngeal erythema. No thyromegaly. CARDIOVASCULAR: S1 and S2 present. No murmurs, rubs, or gallops. PULMONARY: Chest is clear to auscultation, no wheezing or crackles. ABDOMEN: Soft, nontender, nondistended, normoactive bowel sounds. No palpable organomegaly. MUSCULOSKELETAL: Knees postsurgically packed no drain but does have pain pump in that area EXTREMITIES: No cyanosis, clubbing, or pedal edema. NEUROLOGICAL: Gross neurological examination did not reveal any focal deficits. SKIN: No rashes. Results Labs: Abnormal Lab Results - Last 24 Hours (Table) 10/21/18 10/21/18 10/21/18 Range/Units 11:12 14:36 16:47 POC Glucose (mg/dL) 166 H 242 H 219 H (75-99) mg/dL Assessment and Plan Plan: Hypertension: Hold off on ZEKE inhibitor because of above-mentioned reasons amlodipine as before because of above-mentioned reasons continue with atenolol s tarting tomorrow morning. \- type 2 diabetes mellitus patient will be resumed on her home regimen along with sliding scale titration depending on blood sugars here -Hyperlipidemia -Right knee arthroplasty due to prophylaxis and pain management as per primary service
[2018-10-21] MEDS: INSULIN ASPART (NovoLOG) 100 UNIT/ML VIAL SQ SCH ×2 (17:11→20:31)
[2018-10-21] MEDS: GABAPENTIN 400 MG CAP PO SCH ×2 (17:11→20:13)
[2018-10-21] MEDS: OXYBUTYNIN CHLORIDE 5 MG TAB PO SCH ×2 (17:11→20:13)
[2018-10-21] MEDS: SODIUM CHLORIDE 0.9% 1,000 ML IV SCH (17:13)
[2018-10-21] MEDS: ASPIRIN 325 MG TAB PO SCH (20:13)
[2018-10-21] MEDS: ceFAZolin IN SWFI 2 GM/20 ML SYRINGE IVP SCH (20:14)
[2018-10-21 20:25] LABS: Glucose,Whole Blood 308 mg/dL (75-99)
[2018-10-21] MEDS ORDERED: PRAMIPEXOLE 1 MG TAB PO SCH (21:00)
[2018-10-21] MEDS ORDERED: SENNOSIDES-DOCUSATE SODIUM 1 EACH TAB PO SCH (21:00)
[2018-10-21] MEDS ORDERED: GLIMEPIRIDE 2 MG TAB PO SCH (21:00)
[2018-10-21] MEDS ORDERED: EMPAGLIFLOZIN 10 MG PO SCH (21:00)
[2018-10-21] MEDS ORDERED: LINAGLIPTIN 5 MG TABLET PO SCH (21:00)
[2018-10-21] MEDS ORDERED: PANTOPRAZOLE 40 MG TABLET PO SCH (21:00)
[2018-10-21] MEDS ORDERED: CITALOPRAM HYDROBROMIDE 20 MG TAB PO SCH (21:00)
[2018-10-22] MEDS: ceFAZolin IN SWFI 2 GM/20 ML SYRINGE IVP SCH (03:51)
[2018-10-22] MEDS: SODIUM CHLORIDE 0.9% 1,000 ML IV SCH (03:57)
[2018-10-22] MEDS: LACTATED RINGERS 1,000 ML IV SCH (03:57)
--- NOTE | 2018-10-22 06:43 | P.PN ---
Progress Note - Text Progress Note Date: 10/22/18 Postoperative day # 1 status post total right knee arthroplasty, under spinal anesthesia, and adductor canal catheter placed for postoperative analgesia, currently at ropivacaine 0.2% 8 mL per hour and continuous infusion, visual analogue scale is 3/10, patient using oral pain medication for breakthrough pain. Assessment and plan= Acute postoperative pain, adductor canal catheter for pain control, pain is well controlled we'll continue the same management.
[2018-10-22 07:26] LABS: Basophils # (A) 0.1 k/uL (0-0.2); Basophils % (A) 0 %; Eosinophils # (A) 0.1 k/uL (0-0.7); Eosinophils % (A) 1 %; HCT 36.7 % (34.0-46.0); HGB 11.5 gm/dL (11.4-16.0); Lymphocytes # (A) 2.3 k/uL (1.0-4.8); Lymphocytes % (A) 17 %; MCH 25.4 pg (25.0-35.0); MCHC 31.3 g/dL (31.0-37.0); MCV 81.1 fL (80.0-100.0); Mean Platelet Volume 8.2; Monocytes # (A) 0.7 k/uL (0-1.0); Monocytes % (A) 5 %; Neutrophils # (A) 10.1 k/uL (1.3-7.7); Neutrophils % (A) 76 %; Platelet Count 290 k/uL (150-450); RBC 4.53 m/uL (3.80-5.40); RDW 14.8 % (11.5-15.5); WBC 13.3 k/uL (3.8-10.6)
[2018-10-22 07:29] LABS: Glucose,Whole Blood 163 mg/dL (75-99)
[2018-10-22] MEDS: ASPIRIN 325 MG TAB PO SCH (07:50)
[2018-10-22] MEDS: OXYBUTYNIN CHLORIDE 5 MG TAB PO SCH (07:51)
[2018-10-22] MEDS: GABAPENTIN 400 MG CAP PO SCH (07:51)
[2018-10-22] MEDS: INSULIN ASPART (NovoLOG) 100 UNIT/ML VIAL SQ SCH ×2 (07:52→12:45)
[2018-10-22 08:35] VITALS: BP 103/50; PULSE 60; RESP 16; TEMP 97.3
--- NOTE | 2018-10-22 08:59 | P.DS ---
Providers Expected date of discharge: 10/22/18 Attending physician: Ravi Simmons Consults: 10/21/18 13:16 Consult Physician Routine Consulting Provider: Brisa Severino Consult Reason/Comments: medical management Do you want consulting provider notified?: Yes Primary care physician: Stated None - Discharge Diagnosis(es) (1) Osteoarthritis of right knee Current Visit: Yes Status: Acute (2) S/P total knee arthroplasty Current Visit: Yes Status: Acute Hospital Course: This is a 68-year-old female with known history of degenerative arthritis of the right knee. The patient presents for evaluation. After discussion and consideration patient elects to proceed with total knee arthroplasty. The patient is seen preoperatively by Dr. Simmons and medically cleared for surgery by their primary care physician. Patient is admitted to [facility] on 10/21/2018 for total knee arthroplasty. The procedures performed without complication or sequelae. The patient is doing well postoperatively. Labs and vital signs are stable on day of discharge. On day of discharge patient's knee incision is healing well. There is minimal erythema. There is no drainage noted at this time. There is minimal soft tissue swelling to the knee. Patient has full foot and ankle motion without difficulty or pain. Calf is soft and nontender to palpation. Neurovascular status to the right lower extremity is intact. Patient is discharged home in good condition. Opioid start talking form is reviewed and signed at patient bedside. Please see med rec for accurate list of home medications. Plan - Discharge Summary Discharge Rx Participant: Yes New Discharge Prescriptions: New Aspirin 325 mg PO BID #60 tab HYDROcodone/APAP 5-325MG [[place] 5-325] 1 - 2 tab PO Q6HR PRN #56 tab PRN Reason: Pain Sennosides [Senokot] 1 tab PO BID #60 tablet No Action Omeprazole [PriLOSEC] 20 mg PO HS Chlorthalidone [Hygroton] 25 mg PO DAILY Magnesium Oxide [Mag-Ox] 400 mg PO DAILY Glimepiride [Amaryl] 4 mg PO HS Atenolol [Tenormin] 25 mg PO QAM Losartan Potassium 100 mg PO DAILY Pramipexole [Mirapex] 1.5 mg PO HS Oxybutynin Chloride [Ditropan] 5 mg PO TID Linagliptin [Tradjenta] 5 mg PO HS Pnv No.95/Ferrous Fum/Folic AC [ Multivitamin Tablet] 1 tab PO DAILY Aspirin 81 mg PO DAILY Gabapentin [Neurontin] 800 mg PO TID Naproxen 500 mg PO HS Citalopram Hydrobromide [Citalopram HBr] 40 mg PO HS Empagliflozin [Jardiance] 10 mg PO HS metFORMIN HCL [Glucophage] 1,000 mg PO QAM Saliva Stimulant Agents Comb.3 [Biotene Moisturizing Mouth] 1 spray MUCOUS MEM DAILY PRN PRN Reason: Dry Mouth Discharge Medication List Atenolol [Tenormin] 25 mg PO QAM 01/22/14 [History] Chlorthalidone [Hygroton] 25 mg PO DAILY 01/22/14 [History] Glimepiride [Amaryl] 4 mg PO HS 01/22/14 [History] Losartan Potassium 100 mg PO DAILY 01/22/14 [History] Magnesium Oxide [Mag-Ox] 400 mg PO DAILY 01/22/14 [History] Omeprazole [PriLOSEC] 20 mg PO HS 01/22/14 [History] Linagliptin [Tradjenta] 5 mg PO HS 12/04/17 [History] Oxybutynin Chloride [Ditropan] 5 mg PO TID 12/04/17 [History] Pnv No.95/Ferrous Fum/Folic AC [ Multivitamin Tablet] 1 tab PO DAILY 12/04/17 [History] Pramipexole [Mirapex] 1.5 mg PO HS 12/04/17 [History] Aspirin 81 mg PO DAILY 08/05/18 [History] Citalopram Hydrobromide [Citalopram HBr] 40 mg PO HS 08/05/18 [History] Empagliflozin [Jardiance] 10 mg PO HS 08/05/18 [History] Gabapentin [Neurontin] 800 mg PO TID 08/05/18 [History] Naproxen 500 mg PO HS 08/05/18 [History] Saliva Stimulant Agents Comb.3 [Biotene Moisturizing Mouth] 1 spray MUCOUS MEM DAILY PRN 10/14/18 [History] metFORMIN HCL [Glucophage] 1,000 mg PO QAM 10/14/18 [History] Aspirin 325 mg PO BID #60 tab 10/22/18 [Rx] HYDROcodone/APAP 5-325MG [[place] 5-325] 1 - 2 tab PO Q6HR PRN #56 tab 10/22/18 [Rx] Sennosides [Senokot] 1 tab PO BID #60 tablet 10/22/18 [Rx] Follow up Appointment(s)/Referral(s): Ravi Simmons DO [Doctor of Osteopathic Medicine] - 2 Weeks Ambulatory/Diagnostic Orders: Continuous Passive Motion (CPM) Machine [DME.AMB1] Time Frame: 3 Weeks, Location: None Selected Activity/Diet/Wound Care/Special Instructions: Weightbearing as tolerated with a walker. CPM 5-6h daily. Leave dressing intact. May be removed by home care nurse or by patient in 10 days. May shower with dressing on. Please follow up with [facility] and call with any questions or concerns, . Discharge Disposition: HOME WITH HOME HEALTH SERVICES
[2018-10-22] MEDS ORDERED: MELOXICAM 7.5 MG TAB PO SCH (09:00)
[2018-10-22] MEDS ORDERED: ATENOLOL 25 MG TAB PO SCH (09:00)
[2018-10-22 11:39] LABS: Glucose,Whole Blood 231 mg/dL (75-99)
[2018-10-22] MEDS ORDERED: MAGNESIUM OXIDE 400 MG TAB PO SCH (12:00)
--- NOTE | 2018-10-22 15:36 | P.PN ---
Subjective She does clinically doing well blood pressure remains on the low side because of which a past patient to hold off on chlorthalidone muscle and losartan until she is seen by her primary care physician although check her blood pressure at home. Patient can resume her atenolol patient blood pressure is an 100 systolic. Constitutional: Denied any fatigue denied any fever. Cardio vascular: denied any chest pain, palpitations Gastrointestinal denied any nausea vomiting Pulmonary: Denied any shortness of breath cough Neurologic denied any new focal deficits All inpatient medications were reviewed and appropriate changes in these medications as dictated in the interval history and assessment and plan. Objective - Vital Signs Vital signs: Vital Signs Temp 97.3 F L 10/22/18 07:26 Pulse 60 10/22/18 07:26 Resp 16 10/22/18 07:26 BP 103/50 10/22/18 07:26 Pulse Ox 91 L 10/22/18 07:26 Intake & Output 10/21/18 10/22/18 10/22/18 18:59 06:59 18:59 Intake Total 1501 1750 Output Total 50 Balance 1451 1750 Intake: IV 1501 Intake, IV Titration 1750 Amount Sodium Chloride 0.9% 1, 670 000 ml @ 65 mls/hr IV . [id number] [facility] Rx#:[id number] Tranexamic Acid 1,000 mg 1080 In Sodium Chloride 0.9% 100 ml @ 220 mls/hr IVPB ONCE ONE Rx#:[id number] Output: Estimated Blood Loss 50 Other: Voiding Method Toilet Toilet # Voids 1 3 1 - Exam PHYSICAL EXAMINATION: GENERAL: The patient is alert and oriented x3, not in any acute distress. Well developed, well nourished. HEENT: Pupils are round and equally reacting to light. EOMI. No scleral icterus. No conjunctival pallor. Normocephalic, atraumatic. No pharyngeal erythema. No thyromegaly. CARDIOVASCULAR: S1 and S2 present. No murmurs, rubs, or gallops. PULMONARY: Chest is clear to auscultation, no wheezing or crackles. ABDOMEN: Soft, nontender, nondistended, normoactive bowel sounds. No palpable organomegaly. MUSCULOSKELETAL: Knees postsurgically packed no drain but does have pain pump in that area EXTREMITIES: No cyanosis, clubbing, or pedal edema. NEUROLOGICAL: Gross neurological examination did not reveal any focal deficits. SKIN: No rashes. - Labs CBC & Chem 7: 10/22/18 06:54 Labs: Abnormal Lab Results - Last 24 Hours (Table) 10/21/18 10/21/18 10/22/18 Range/Units 16:47 20:23 06:54 WBC 13.3 H (3.8-10.6) k/uL Neutrophils # 10.1 H (1.3-7.7) k/uL POC Glucose (mg/dL) 219 H 308 H (75-99) mg/dL 10/22/18 10/22/18 Range/Units 07:27 11:37 WBC (3.8-10.6) k/uL Neutrophils # (1.3-7.7) k/uL POC Glucose (mg/dL) 163 H 231 H (75-99) mg/dL Assessment and Plan Plan: Hypertension: Hold off on ZEKE inhibitor because of above-mentioned reasons , atenolol will be continued \- type 2 diabetes mellitus patient will be resumed on her home regimen -Hyperlipidemia -Right knee arthroplasty due to prophylaxis and pain management as per primary service
== END 2018-10-22 15:44 | disposition home health service (06) ==
LOC: OR 09:30 → EDSTATUS 13:50 → 4SSUR 13:51 → OR 10-22 15:44
PROVIDERS: ATTEND Orthopaedic Surgery
DX: M17.11 Unilateral primary osteoarthritis, right knee (principal); M25.761 Osteophyte, right knee; I10 Essential (primary) hypertension; E78.5 Hyperlipidemia, unspecified; E11.9 Type 2 diabetes mellitus without complications; G25.81 Restless legs syndrome; Z96.652 Presence of left artificial knee joint; K21.9 Gastro-esophageal reflux disease without esophagitis; Z90.49 Acquired absence of other specified parts of digestive tract; Z98.51 Tubal ligation status; Z85.828 Personal history of other malignant neoplasm of skin; Z79.1 Long term (current) use of non-steroidal anti-inflammatories (NSAID); Z86.73 Personal history of transient ischemic attack (TIA), and cerebral infarction without residual deficits; Z97.2 Presence of dental prosthetic device (complete) (partial); R06.81 Apnea, not elsewhere classified; Z99.89 Dependence on other enabling machines and devices; Z80.8 Family history of malignant neoplasm of other organs or systems; Z83.3 Family history of diabetes mellitus; Z79.84 Long term (current) use of oral hypoglycemic drugs; Z79.82 Long term (current) use of aspirin; Z79.891 Long term (current) use of opiate analgesic; Z79.899 Other long term (current) drug therapy; Z88.2 Allergy status to sulfonamides; Z88.8 Allergy status to other drugs, medicaments and biological substances
CPT/HCPCS: 27447; 97161; 64447; 85025; 88300; 73560; C1713; C1776; C1772; J2250; J0171; J1100; J2405; J0690 ×3; J3010; J1885; J2795; J2704; J0735

== ENCOUNTER → 2020-02-19 | Outpatient (CLI) | payer MEDICARE, OTHER ==
--- NOTE | 2020-02-23 13:20 | MM ---
Reason for exam: screening (asymptomatic). Last mammogram was performed 1 year and 3 months ago. History: Patient is postmenopausal and history of other cancer. Family history of breast cancer in daughter at age 32. Benign ultrasound-guided core biopsy of the left breast, 2004. Took hormonal contraceptives for 1 year. Physical Findings: A clinical breast exam by your physician is recommended on an annual basis and results should be correlated with mammographic findings. MG 3D Screening Mammo W/Cad Bilateral CC and MLO view(s) were taken. Prior study comparison: October 16, 2018, bilateral MG 3d screening mammo w/cad. June 13, 2017, bilateral MG 3d screening mammo w/cad. There are scattered fibroglandular densities. There is chronic nodularity in the right breast subareolar and laterally. No significant changes when compared with prior studies. ASSESSMENT: Negative, BI-RAD 1 RECOMMENDATION: Routine screening mammogram of both breasts in 1 year.
== END | disposition home or self-care (01) ==
LOC: RADMAMWWP 13:09
PROVIDERS: ATTEND Family Medicine
DX: Z12.31 Encounter for screening mammogram for malignant neoplasm of breast (principal)
CPT/HCPCS: 77063; 77067

== ENCOUNTER → 2020-03-03 | Outpatient (CLI) | payer MEDICARE, OTHER ==
--- NOTE | 2020-03-03 09:02 | BD ---
EXAMINATION TYPE: Axial Bone Density DATE OF EXAM: 03/03/2020 COMPARISON: Prior bone scan June 13, 2017 CLINICAL HISTORY: Postmenopausal female. Height: 60 Weight: 215.4 FRAX RISK QUESTIONS: Alcohol (3 or more units per day): no Family History (Parent hip fracture): no Glucocorticoids (More than 3mos): no (Ex: prednisone, prednisolone, methylprednisolone, dexamethasone, and hydrocortisone). History of Fracture in Adulthood: no Secondary Osteoporosis: 1. Type 1 Diabetes: no 2. Hyperthyroidism: no 3. Menopause before 45: yes 4. Malnutrition: no 5. Chronic liver disease: no Rheumatoid Arthritis: no Current Tobacco Use: no RISK FACTORS HISTORY OF: Family History of Osteoporosis: no Active: sometimes Diet low in dairy products/other sources of calcium: yes Postmenopausal woman: age 42 Lost more than 2 inches in height since high school: yes MEDICATIONS: blood pressure meds, diabetic meds, rls meds Additional History: EXAM MEASUREMENTS: Bone mineral densitometry was performed using the [employer]. Bone mineral density as measured about the Lumbar spine is: ----- L1-L4(G/cm2): 1.687 T Score Values are as follows: ----- L2: 3.2 ----- L3: 4.4 ----- L4: 5.7 ----- L1-L4: 4.2 Bone mineral density has: increased 8.7 % since study of: 06.13.2017 Bone mineral density about the R hip (g/cm2): 1.037 Bone mineral density about the L hip (g/cm2): 1.019 T Score values are as follows: -----R Neck: 0.0 -----L Neck: -0.1 -----R Total: 0.7 -----L Total: 0.7 Bone mineral density has: increased 0.9 % since study of: 06.13.2017 IMPRESSION: Normal (Values between +1 and -1 indicate normal bone mass). Consider repeating this study in 5 year s or sooner if there is some new clinical indication. NOTE: T-SCORE=SD OF THE YOUNG ADULT MEAN.
== END | disposition home or self-care (01) ==
LOC: RADBDWWP 07:01
PROVIDERS: ATTEND Family Medicine
DX: Z78.0 Asymptomatic menopausal state (principal)
CPT/HCPCS: 77080

== ENCOUNTER → 2021-09-06 | Outpatient (CLI) | payer MEDICARE, OTHER ==
--- NOTE | 2021-09-06 16:12 | US ---
EXAMINATION TYPE: US thyroid st tissue head/neck DATE OF EXAM: 09/06/2021 COMPARISON: CT chest 08/15/2021 CLINICAL HISTORY: R93.89 ABNORMAL FINDINGS ON DX IMAGING OF OTH BODY STRUCT. GLAND SIZE: Right Lobe: 3.5 x 1.5 x 1.4 cm Overall Parenchyma: homogenous Left Lobe: 5.7 x 3.0 x 3.3 cm Overall Parenchyma: heterogeneous Isthmus Thickness: 0.3 cm NODULES RIGHT: # of nodules measured on right: 0 LEFT: # of nodules measured on left: 1 1. 4.9 X 2.6 x 3.5 cm, mid mid, solid or almost completely solid, isoechoic nodule, which is taller than wide, with ill-defined margins, with echogenic foci. Prior size: no prior Very little normal tissue seen, entire lobe consists of nodule, only a small amount of normal tissu e see superiorly.. ISTHMUS: # of nodules measured in the isthmus: 0 Bilateral neck scanned, no evidence of lymphadenopathy. Homogeneous small size right thyroid lobe with asymmetric heterogeneous enlarged left thyroid lobe du e to dominant solid nodule as detailed above. IMPRESSION: Advise ultrasound guided sampling of dominant left thyroid nodule. 2017 ACR TI-RADS LEVEL: TI-RADS 5 - Highly Suspicious: Follow if > 0.5 cm, FNA if > 1.0 cm *Highest TI-RADS level nodule reported
== END | disposition home or self-care (01) ==
LOC: RADUSWWP 15:33
PROVIDERS: ATTEND Family Medicine
DX: R93.89 Abnormal findings on diagnostic imaging of other specified body structures (principal)
CPT/HCPCS: 76536

== ENCOUNTER → 2021-10-05 | Day surgery (SDC) | payer MEDICARE, OTHER ==
[2021-10-05 10:54] VITALS: BP 105/55; PULSE 68; RESP 16; TEMP 98.1
--- NOTE | 2021-10-06 07:46 | US ---
EXAMINATION TYPE: US FNA thyroid first lesion DATE OF EXAM: 10/05/2021 COMPARISON: NONE HISTORY: Thyroid nodule in the left. Maximal barrier technique was utilized. After informed consent, skin overlying the left lobe thyroid nodule was localized with ultrasound and the overlying skin prepped and draped. Ultrasound was utili zed using sterile technique. Lidocaine was used for local anesthesia. Five passes with a 25-gauge ne edle were made into the nodule and aspirated specimen was submitted to cytology. Following the proce dure hemostasis achieved. No immediate complication. The patient discharged in stable condition. IMPRESSION: STATUS POST ULTRASOUND GUIDED FINE NEEDLE ASPIRATION OF THYROID NODULE, PATHOLOGY IS PEND ING. THIS PROCEDURE WAS PERFORMED BY THE UNDERSIGNED.
== END ==
LOC: RADPROMAIN 10:21
PROVIDERS: ATTEND Family Medicine
DX: E04.1 Nontoxic single thyroid nodule (principal)
CPT/HCPCS: 10005; 88173; 88305

== ENCOUNTER → 2021-10-11 | Outpatient (CLI) | payer MEDICARE, OTHER ==
--- NOTE | 2021-10-11 16:17 | XR ---
AP pelvis, coccyx and sacrum HISTORY: Trauma and pain Single frontal view the pelvis, 4 views of the sacrum and coccyx submitted Motion is present on the frontal pelvis which is performed in the upright position. Alignment and monique nt spaces are maintained. Degenerative disc changes are present in the visualized spine. There is tho ught to be sacralization of L5. Sacrum and coccyx are intact, bone mineralization and alignment are maintained. Hypertrophic changes are noted in the lower lumbar spine IMPRESSION: No fracture or dislocation is evident. There are some limitations the exam, follow-up as indicated.
--- NOTE | 2021-10-11 16:20 | XR ---
Left knee HISTORY: Trauma and pain 2 views the left knee correlated prior exam 12/17/2017 Patient is status post left knee arthroplasty. There is anatomic alignment. Suprapatellar increased d ensity may be indicative of joint effusion. IMPRESSION: No acute fracture or dislocation.
== END | disposition home or self-care (01) ==
LOC: RADXRMAIN 14:35
PROVIDERS: ATTEND Family Medicine
DX: R10.2 Pelvic and perineal pain (principal); W01.10XA Fall on same level from slipping, tripping and stumbling with subsequent striking against unspecified object, initial encounter
CPT/HCPCS: 72170; 72220

== ENCOUNTER 2021-10-27 12:02 | Emergency (ER) | payer MEDICARE, OTHER ==
[2021-10-27] MEDS ORDERED: MORPHINE SULFATE 4 MG/ML SYRINGE IVP STA (12:30)
--- NOTE | 2021-10-27 12:35 | ED ---
General Adult HPI - General Chief complaint: Fall Stated complaint: Hip Pain Time Seen by Provider: 10/27/21 12:04 Source: patient, RN notes reviewed, old records reviewed Mode of arrival: ambulatory Limitations: no limitations - History of Present Illness Initial comments: 71-year-old female presenting with frequent falls. Most recent fall was 2 days ago. This resulted in right lower back pain and right hip pain. She states she fell several weeks ago and had injured her tailbone. She did not have head trauma. The fall occurred 2 days prior. She has been able to walk but has had increased pain - Related Data Home Medications Medication Instructions Recorded Confirmed Magnesium Oxide [Mag-Ox] 400 mg PO DAILY 01/22/14 10/27/21 Omeprazole [PriLOSEC] 20 mg PO HS 01/22/14 10/27/21 atenoloL [Tenormin] 25 mg PO DAILY 01/22/14 10/27/21 Linagliptin [Tradjenta] 5 mg PO HS 12/04/17 10/27/21 Oxybutynin Chloride [Ditropan] 10 mg PO BID 12/04/17 10/27/21 Citalopram Hydrobromide 40 mg PO HS 08/05/18 10/27/21 [Citalopram HBr] metFORMIN HCL [Glucophage] 1,000 mg PO HS 10/14/18 10/27/21 Aspirin [Adult Low Dose Aspirin EC] 81 mg PO DAILY 09/21/21 10/27/21 Furosemide [Lasix] 20 mg PO DAILY 09/21/21 10/27/21 Insulin Glargine,Hum.rec.anlog 28 units SQ HS@2100 09/21/21 10/27/21 [Basaglar Kwikpen U-100] Chlorthalidone [Hygroton] 25 mg PO DAILY 10/27/21 10/27/21 Empagliflozin [Jardiance] 25 mg PO HS 10/27/21 10/27/21 Famotidine 20 mg PO DAILY 10/27/21 10/27/21 Gabapentin 800 mg PO ACHS 10/27/21 10/27/21 Glimepiride [Amaryl] 4 mg PO BID 10/27/21 10/27/21 Losartan Potassium 100 mg PO DAILY 10/27/21 10/27/21 Naproxen [EC-Naproxen] 500 mg PO BID-W/MEALS PRN 10/27/21 10/27/21 Pramipexole Di-HCl [Pramipexole 1.5 mg PO HS 10/27/21 10/27/21 Dihydrochloride] Previous Rx's Medication Instructions Recorded HYDROcodone/APAP 5-325MG [[place] 1 tab PO Q6HR PRN #12 tab 10/27/21 5-325] Allergies Allergy/AdvReac Type Severity Reaction Status Date / Time sulfamethoxazole Allergy Rash/Hives Verified 10/27/21 13:42 [From Bactrim] trimethoprim [From Bactrim] Allergy Rash/Hives Verified 10/27/21 13:42 albuterol AdvReac jittery, Verified 10/27/21 13:42 hyper atorvastatin calcium AdvReac muscle Verified 10/27/21 13:42 [From Lipitor] cramps Review of Systems ROS Statement: Those systems with pertinent positive or pertinent negative responses have been documented in the HPI. ROS Other: All systems not noted in ROS Statement are negative. Past Medical History Past Medical History: Diabetes Mellitus, Hyperlipidemia, Hypertension, Thyroid Disorder Additional Past Medical History / Comment(s): RESTLESS LEGS History of Any Multi-Drug Resistant Organisms: None Reported Past Surgical History: Cholecystectomy, Joint Replacement, Tubal Ligation Additional Past Surgical History / Comment(s): SKIN CANCER REMOVAL, bilateral knee replacement Past Anesthesia/Blood Transfusion Reactions: No Reported Reaction Past Psychological History: No Psychological Hx Reported Smoking Status: Never smoker Past Alcohol Use History: None Reported Past Drug Use History: None Reported - Past Family History Father Family Medical History: Cancer Additional Family Medical History / Comment(s): skin cancer Mother Family Medical History: Deep Vein Thrombosis (DVT) General Exam Limitations: no limitations General appearance: alert, in no apparent distress Head exam: Present: atraumatic, normocephalic Eye exam: Present: normal appearance, PERRL ENT exam: Present: normal exam Neck exam: Present: normal inspection. Absent: tenderness, meningismus Respiratory exam: Present: normal lung sounds bilaterally. Absent: respiratory distress, wheezes Cardiovascular Exam: Present: regular rate, normal rhythm GI/Abdominal exam: Present: soft. Absent: distended, tenderness, guarding Extremities exam: Present: normal capillary refill. Absent: full ROM (At hip), pedal edema, joint swelling Back exam: Present: paraspinal tenderness (Sacral region and lumbar region) Neurological exam: Present: alert, oriented X3, CN II-XII intact. Absent: motor sensory deficit Psychiatric exam: Present: normal affect, normal mood Skin exam: Present: warm, dry, intact. Absent: cyanosis, diaphoretic Course Vital Signs 10/27/21 10/27/21 12:08 13:32 Temperature 98.4 F Pulse Rate 64 66 Respiratory 18 24 Rate Blood Pressure 104/45 111/69 O2 Sat by Pulse 96 96 Oximetry Medical Decision Making - Medical Decision Making 71-year-old female presenting with right hip pain status post fall. Patient states that the fall was 2 days ago that she has been able to bear weight. She also fell about a month ago and injured her tailbone. She had been prescribed [place] for this from her primary care physician but her prescription ran out. She denies head trauma. The fall occurred 2 days prior to evaluation. She has no external signs trauma, no shortening or rotation, normal pulse exam, no chest pain or abdominal pain. No headache or neck pain. Patient has a mild leukocytosis of uncertain etiology but this has been chronic for the patient. She has mild a cat I and had been given IV fluids by paramedics. She will maintain oral hydration at home. She should follow-up with her primary care physician regarding this continued pain. - Lab Data Result diagrams: 10/27/21 12:44 10/27/21 12:44 Lab Results 10/27/21 10/27/21 10/27/21 Range/Units 12:44 12:44 12:44 WBC 14.8 H (3.8-10.6) k/uL RBC 5.21 (3.80-5.40) m/uL Hgb 10.9 L (11.4-16.0) gm/dL Hct 35.2 (34.0-46.0) % MCV 67.6 L (80.0-100.0) fL MCH 21.0 L (25.0-35.0) pg MCHC 31.0 (31.0-37.0) g/dL RDW 17.2 H (11.5-15.5) % Plt Count 505 H (150-450) k/uL MPV 8.2 Neutrophils % 81 % Lymphocytes % 12 % Monocytes % 4 % Eosinophils % 2 % Basophils % 1 % Neutrophils # 12.0 H (1.3-7.7) k/uL Lymphocytes # 1.7 (1.0-4.8) k/uL Monocytes # 0.6 (0-1.0) k/uL Eosinophils # 0.4 (0-0.7) k/uL Basophils # 0.1 (0-0.2) k/uL Manual Slide Review Performed Hypochromasia Moderate Poikilocytosis (manual Present Anisocytosis Slight Microcytosis Marked PT 11.0 (9.0-12.0) sec INR 1.0 (<1.2) APTT 22.5 (22.0-30.0) sec Sodium 137 (137-145) mmol/L Potassium 3.8 (3.5-5.1) mmol/L Chloride 100 (98-107) mmol/L Carbon Dioxide 23 (22-30) mmol/L Anion Gap 14 mmol/L BUN 44 H (7-17) mg/dL Creatinine 1.42 H (0.52-1.04) mg/dL Est GFR (CKD-EPI)AfAm 43 (>60 ml/min/1.73 sqM) Est GFR (CKD-EPI)NonAf 38 (>60 ml/min/1.73 sqM) Glucose 102 H (74-99) mg/dL Calcium 9.7 (8.4-10.2) mg/dL Total Bilirubin 0.6 (0.2-1.3) mg/dL AST 22 (14-36) U/L ALT 16 (4-34) U/L Alkaline Phosphatase 74 (38-126) U/L Total Protein 7.2 (6.3-8.2) g/dL Albumin 4.0 (3.5-5.0) g/dL Disposition Clinical Impression: Fall, Contusion of right hip Disposition: HOME SELF-CARE Condition: Fair Instructions (If sedation given, give patient instructions): Fall Prevention for Older Adults (ED), Hip Sprain (ED) Prescriptions: HYDROcodone/APAP 5-325MG [[place] 5-325] 1 tab PO Q6HR PRN #12 tab PRN Reason: Pain Is patient prescribed a controlled substance at d/c from ED?: No Referrals: Gill Melo MD [Primary Care Provider] - 1-2 days Davin Pantoja DO [Doctor of Osteopathic Medicine] - 1-2 days Time of Disposition: 14:58
[2021-10-27 13:04] LABS: Partial Thromboplastin Time 22.5 sec (22.0-30.0)
[2021-10-27 13:12] LABS: Calcium 9.7 mg/dL (8.4-10.2); Potassium 3.8 mmol/L (3.5-5.1); Total Bilirubin 0.6 mg/dL (0.2-1.3); Total Protein 7.2 g/dL (6.3-8.2)
[2021-10-27 13:22] LABS: Anisocytosis Slight; Basophils # (A) 0.1 k/uL (0-0.2); Basophils % (A) 1 %; Eosinophils # (A) 0.4 k/uL (0-0.7); Eosinophils % (A) 2 %; HCT 35.2 % (34.0-46.0); HGB 10.9 gm/dL (11.4-16.0); Hypochromasia Moderate; Lymphocytes # (A) 1.7 k/uL (1.0-4.8); Lymphocytes % (A) 12 %; MCV 67.6 fL (80.0-100.0); Mean Platelet Volume 8.2; Microcytosis Marked; Monocytes # (A) 0.6 k/uL (0-1.0); Monocytes % (A) 4 %; Neutrophils % (A) 81 %; Platelet Count 505 k/uL (150-450); RBC 5.21 m/uL (3.80-5.40); RDW 17.2 % (11.5-15.5); WBC 14.8 k/uL (3.8-10.6)
[2021-10-27 13:34] LABS: Poikilocytosis (M) Present
--- NOTE | 2021-10-27 14:14 | XR ---
EXAMINATION TYPE: XR Hip RT and AP Pelvis DATE OF EXAM: 10/27/2021 COMPARISON: Exam 10/11/2021 HISTORY: Trauma and pain TECHNIQUE: A single AP view of the pelvis is obtained. Two views of the right hip are obtained. FINDINGS: There is no acute fracture/dislocation evident in the pelvis. The hip and sacroiliac join ts appear symmetric and unremarkable. The overlying soft tissue appears unremarkable. Two views of right hip show no acute fracture or dislocation. No focal lytic or sclerotic lesion see n in the proximal right femur. The overlying soft tissue is unremarkable. IMPRESSION: There is no acute fracture or dislocation in the pelvis or right hip.
--- NOTE | 2021-10-27 14:17 | XR ---
Lumbosacral spine HISTORY: Trauma and pain 5 views of lumbosacral spine There is no evident spondylolysis or spondylolisthesis. Multilevel spondylosis is present. There is a nterolisthesis grade 1 L4-5, L3-4. Loss of disc height present L2-3 and L4-5, L2-3, vacuum phenomenon present L3-4, L4-5. L5 is sacralized. Lumbar vertebral bodies show preserved height and bone mineral ization. Sclerosis posterior elements is consistent with facet arthropathy. There is a spinal curvatu re convex left centered at L2. Surgical clips are present in the right upper quadrant. IMPRESSION: Degenerative disc disease and facet arthropathy.
[2021-10-27 15:23] VITALS: BP 111/48; PULSE 60; RESP 16; TEMP 98.6
== END 2021-10-27 15:23 | disposition home or self-care (01) ==
LOC: EC 12:02
DX: S70.01XA Contusion of right hip, initial encounter (principal); E11.9 Type 2 diabetes mellitus without complications; E78.5 Hyperlipidemia, unspecified; I10 Essential (primary) hypertension; E07.9 Disorder of thyroid, unspecified; Z79.899 Other long term (current) drug therapy; Z88.2 Allergy status to sulfonamides; Z88.1 Allergy status to other antibiotic agents; Z88.8 Allergy status to other drugs, medicaments and biological substances; W19.XXXA Unspecified fall, initial encounter
CPT/HCPCS: 36415; 80053; 85025; 85610; 85730; 72110; 73502; 96374; 99284; J2270

== ENCOUNTER → 2022-06-05 | Outpatient (CLI) | payer MEDICARE, OTHER ==
--- NOTE | 2022-06-06 18:16 | MM ---
Reason for Exam: Screening (asymptomatic). Last mammogram was performed 2 year(s) and 3 month(s) ago. Patient History: Menarche at age 11. First Full-Term at age 19. Postmenopausal. Other cancer. Patient used Hormonal Contraceptives for 1 year. 2004, Benign Ultrasound-Guided Core Biopsy on the left side. Daughter had breast cancer, age 32. Risk Values: Juany 5 year model risk: 4.2%. NCI Lifetime model risk: 11.8%. Prior Study Comparison: 10/16/2018 Bilateral Screening Mammogram, [facility]. 11/04/2018 Left Diagnostic Mammogram, [facility]. 02/19/2020 Bilateral Screening Mammogram, [facility]. Tissue Density: There are scattered fibroglandular densities. Findings: Analyzed By CAD. Pattern appears symmetrical and stable. Scattered benign punctate calcifications are present. No suspicious groups of microcalcifications, spiculated or lobular masses, architectural distortion or other secondary signs of malignancy are mammographically apparent. Overall Assessment: Benign, BI-RAD 2 Management: Screening Mammogram of both breasts in 1 year. A negative mammogram report should not preclude additional follow up of suspicious palpable abnormalities. Patient should continue monthly self breast exam. A clinical breast exam by your physician is recommended on an annual basis and results should be correlated with mammographic findings. Electronically signed and approved by: Tyler Ladd D.O. Radiologis
== END | disposition home or self-care (01) ==
LOC: RADMAMWWP 13:01
PROVIDERS: ATTEND Family Medicine
DX: Z12.31 Encounter for screening mammogram for malignant neoplasm of breast (principal); Z78.0 Asymptomatic menopausal state; Z80.3 Family history of malignant neoplasm of breast
CPT/HCPCS: 77063; 77067

== ENCOUNTER 2022-07-27 18:56 | Emergency (ER) | payer MEDICARE, OTHER ==
[2022-07-27 19:58] VITALS: RESP 18; TEMP 98.7
--- NOTE | 2022-07-27 20:40 | ED ---
Recheck HPI - General Chief Complaint: Recheck/Abnormal Lab/Rx Stated Complaint: abn labs Time Seen by Provider: 07/27/22 20:25 Source: patient, RN notes reviewed, old records reviewed Mode of arrival: wheelchair Limitations: no limitations - History of Present Illness Initial Comments: This is a pleasant 72-year-old female that presents to the emergency room with family sent by her primary care doctor for hemoglobin drawn yesterday of 6.1. Patient denies any chest pain or shortness of breath. No abnormal bleeding. No dark tarry stools. No abdominal pain. States does not take any blood thinners.She does have a history of diabetes, hypertension, hyperlipidemia MD Complaint: abnormal lab (sent by Dr. Dotson PCP for hemoglobin of 6.1 drawn yesterday) Symptoms Since Prior Visit: no new symptoms Associated Symptoms: none - Related Data Home Medications Medication Instructions Recorded Confirmed Magnesium Oxide [Mag-Ox] 400 mg PO DAILY 01/22/14 07/27/22 Omeprazole [PriLOSEC] 20 mg PO HS 01/22/14 07/27/22 atenoloL [Tenormin] 25 mg PO DAILY 01/22/14 07/27/22 Linagliptin [Tradjenta] 5 mg PO HS 12/04/17 07/27/22 Oxybutynin Chloride [Ditropan] 10 mg PO BID 12/04/17 07/27/22 Citalopram Hydrobromide 40 mg PO DAILY 08/05/18 07/27/22 [Citalopram HBr] metFORMIN HCL [Glucophage] 1,000 mg PO HS 10/14/18 07/27/22 Aspirin [Adult Low Dose Aspirin EC] 81 mg PO DAILY 09/21/21 07/27/22 Insulin Glargine,Hum.rec.anlog 20 units SQ HS 09/21/21 07/27/22 [Basaglar Kwikpen U-100] Chlorthalidone [Hygroton] 25 mg PO DAILY 10/27/21 07/27/22 Empagliflozin [Jardiance] 25 mg PO HS 10/27/21 07/27/22 Famotidine 20 mg PO DAILY 10/27/21 07/27/22 Glimepiride [Amaryl] 4 mg PO BID 10/27/21 07/27/22 Losartan Potassium 100 mg PO DAILY 10/27/21 07/27/22 Naproxen [EC-Naproxen] 500 mg PO BID 10/27/21 07/27/22 Pramipexole Di-HCl [Pramipexole 1.5 mg PO HS 10/27/21 07/27/22 Dihydrochloride] Gabapentin [Neurontin] 800 mg PO BID 07/27/22 07/27/22 Allergies Allergy/AdvReac Type Severity Reaction Status Date / Time sulfamethoxazole Allergy Rash/Hives Verified 07/27/22 22:07 [From Bactrim] trimethoprim [From Bactrim] Allergy Rash/Hives Verified 07/27/22 22:07 albuterol AdvReac jittery, Verified 07/27/22 22:07 hyper atorvastatin calcium AdvReac muscle Verified 07/27/22 22:07 [From Lipitor] cramps Review of Systems ROS Statement: Those systems with pertinent positive or pertinent negative responses have been documented in the HPI. ROS Other: All systems not noted in ROS Statement are negative. Past Medical History Past Medical History: Diabetes Mellitus, Hyperlipidemia, Hypertension, Thyroid Disorder Additional Past Medical History / Comment(s): RESTLESS LEGS History of Any Multi-Drug Resistant Organisms: None Reported Past Surgical History: Cholecystectomy, Joint Replacement, Tubal Ligation Additional Past Surgical History / Comment(s): SKIN CANCER REMOVAL, bilateral knee replacement Past Anesthesia/Blood Transfusion Reactions: No Reported Reaction Past Psychological History: No Psychological Hx Reported Smoking Status: Never smoker Past Alcohol Use History: None Reported Past Drug Use History: None Reported - Past Family History Father Family Medical History: Cancer Additional Family Medical History / Comment(s): skin cancer Mother Family Medical History: Deep Vein Thrombosis (DVT) General Exam Limitations: no limitations General appearance: alert, in no apparent distress Head exam: Present: atraumatic Eye exam: Present: EOMI, other (pale conjunctiva). Absent: scleral icterus, conjunctival injection, periorbital swelling, periorbital tenderness ENT exam: Present: mucous membranes dry Neck exam: Absent: tenderness, meningismus Respiratory exam: Present: normal lung sounds bilaterally. Absent: respiratory distress, accessory muscle use Cardiovascular Exam: Present: regular rate GI/Abdominal exam: Present: soft, other (erythema and excoriation under the pannus and bilateral groin). Absent: distended, tenderness, rigid Extremities exam: Absent: tenderness, pedal edema, calf tenderness Back exam: Present: full ROM. Absent: tenderness, rash noted Neurological exam: Present: alert, oriented X3 Psychiatric exam: Present: normal affect, normal mood Skin exam: Present: warm, dry, rash (pannus, groins), pallor. Absent: cyanosis, diaphoretic, petechiae Course Vital Signs 07/27/22 07/27/22 07/27/22 19:55 21:00 23:36 Temperature 98.7 F Pulse Rate 84 82 79 Respiratory 18 18 18 Rate Blood Pressure 100/54 101/54 116/55 O2 Sat by Pulse 95 95 96 Oximetry Medical Decision Making - Medical Decision Making Patient without any complaints. Sent by her primary care doctor after labs drawn yesterday showed a hemoglobin of 6.1. Vital signs are stable. EKG shows a ventricular rate 75, NH interval 0.144, QRS 0.90, QTC 0.449, normal axis, no change compared to old 10/13/18 Labs today show a hemoglobin 7.5. No active bleeding, hemodynamically stable. Abdomen soft and non-tender. Patient will be discharged home and directed to return if any new or concerning symptoms. She is agreeable to this plan. Case discussed with Dr. Caraballo History of diabetes, hyperlipidemia, hypertension Was pt. sent in by a medical professional or institution (FLAVIO Gray, FOOD ANALYST, urgent care, hospital, or care home...) When possible be specific @ -yes PCP Did you speak to anyone other than the patient for history (EMS, parent, family, police, friend...)? What history was obtained from this source @ -[No] Did you review nursing and triage notes (agree or disagree)? Why? @ -[I reviewed and agree with nursing and triage notes] Were old charts reviewed (outside hosp., previous admission, EMS record, old EKG, old radiological studies, urgent care reports/EKG's, care home records)? Report findings @ -yes previous labs and EKG Differential Diagnosis (chest pain, altered mental status, abdominal pain women, abdominal pain men, vaginal bleeding, weakness, fever, dyspnea, syncope, headache, dizziness, GI bleed, back pain, seizure, CVA, palpatations, mental health, musculoskeletal)? @ -anemia, GI bleed EKG interpreted by me (3pts min.). @ -[As above] X-rays interpreted by me (1pt min.). @ -[None done] CT interpreted by me (1pt min.). @ -[None done] U/S interpreted by me (1pt. min.). @ -[None done] What testing was considered but not performed or refused? (CT, X-rays, U/S, labs)? Why? @ -[None] What meds were considered but not given or refused? Why? @ -packed red blood cells were considered however hemoglobin stable at 7.1, hemodynamically stable Did you discuss the management of the patient with other professionals (professionals i.e. DrNola, PA, FOOD ANALYST, lab, RT, psych nurse, social security benefits interviewer, brass polisher, teacher, department of natural resources officer, family service caseworker)? Give summary @ -[No] Was smoking cessation discussed for >3mins.? @ -[No] Was critical care preformed (if so, how long)? @ -[No] Were there social determinants of health that impacted care today? How? (H omelessness, low income, unemployed, alcoholism, drug addiction, transportation, low edu. Level, literacy, decrease access to med. care, correction, rehab)? @ -[No] Was there de-escalation of care discussed even if they declined (Discuss DNR or withdrawal of care, Hospice)? DNR status @ -[No] What co-morbidities impacted this encounter? (DM, HTN, Smoking, COPD, CAD, Cancer, CVA, ARF, Chemo, Hep., AIDS, mental health diagnosis, sleep apnea, morbid obesity)? @ -DM, HTN, hyperlipidemia Was patient admitted / discharged? Hospital course, mention meds given and route, prescriptions, significant lab abnormalities, going to OR and other pertinent info. @ discharged Undiagnosed new problem with uncertain prognosis? @ -[No] Drug Therapy requiring intensive monitoring for toxicity (Heparin, Nitro, Insulin, Cardizem)? @ -[No] Were any procedures done? @ -[No] Diagnosis/symptom? @ anemia Acute, or Chronic, or Acute on Chronic? @ acute Uncomplicated (without systemic symptoms) or Complicated (systemic symptoms)? @ uncomplicated Side effects of treatment? @ -[No] Exacerbation, Progression, or Severe Exacerbation? @ -[No] Poses a threat to life or bodily function? How? (Chest pain, [place], [place], pneumonia, PE, COPD, DKA, ARF, appy, cholecystitis, CVA, Diverticulitis, Homicidal, Suicidal, threat to staff... and all critical care pts) @ -[No] - Lab Data Result diagrams: 07/27/22 21:14 07/27/22 21:14 Lab Results 07/27/22 07/27/22 07/27/22 Range/Units 21:10 21:14 21:14 WBC 14.5 H (3.8-10.6) k/uL RBC 4.59 (3.80-5.40) m/uL Hgb 7.5 L (11.4-16.0) gm/dL Hct 28.1 L (34.0-46.0) % MCV 61.1 L (80.0-100.0) fL MCH 16.3 L (25.0-35.0) pg MCHC 26.7 L (31.0-37.0) g/dL RDW 17.1 H (11.5-15.5) % Plt Count 469 H (150-450) k/uL MPV 9.5 Neutrophils % 67 % Lymphocytes % 18 % Monocytes % 4 % Eosinophils % 8 % Basophils % 1 % Neutrophils # 9.7 H (1.3-7.7) k/uL Lymphocytes # 2.6 (1.0-4.8) k/uL Monocytes # 0.6 (0-1.0) k/uL Eosinophils # 1.2 H (0-0.7) k/uL Basophils # 0.2 (0-0.2) k/uL Hypochromasia Marked Poikilocytosis Slight Anisocytosis Slight Microcytosis Marked PT 10.7 (9.0-12.0) sec INR 1.0 (<1.2) APTT 21.7 L (22.0-30.0) sec Sodium (137-145) mmol/L Potassium (3.5-5.1) mmol/L Chloride (98-107) mmol/L Carbon Dioxide (22-30) mmol/L Anion Gap mmol/L BUN (7-17) mg/dL Creatinine (0.52-1.04) mg/dL Est GFR (CKD-EPI)AfAm (>60 ml/min/1.73 sqM) Est GFR (CKD-EPI)NonAf (>60 ml/min/1.73 sqM) Glucose (74-99) mg/dL Calcium (8.4-10.2) mg/dL Magnesium (1.6-2.3) mg/dL Total Bilirubin (0.2-1.3) mg/dL AST (14-36) U/L ALT (4-34) U/L Alkaline Phosphatase (38-126) U/L Troponin I (0.000-0.034) ng/mL Total Protein (6.3-8.2) g/dL Albumin (3.5-5.0) g/dL Blood Type O Positive Blood Type Confirm Blood Type Recheck No Previous Record Bld Type Recheck Status CABO Indicated Antibody Screen NEGATIVE Spec Expiration Date 07/30/2022 - 231307/27/22 07/27/22 07/27/22 Range/Units 21:14 21:14 22:02 WBC (3.8-10.6) k/uL RBC (3.80-5.40) m/uL Hgb (11.4-16.0) gm/dL Hct (34.0-46.0) % MCV (80.0-100.0) fL MCH (25.0-35.0) pg MCHC (31.0-37.0) g/dL RDW (11.5-15.5) % Plt Count (150-450) k/uL MPV Neutrophils % % Lymphocytes % % Monocytes % % Eosinophils % % Basophils % % Neutrophils # (1.3-7.7) k/uL Lymphocytes # (1.0-4.8) k/uL Monocytes # (0-1.0) k/uL Eosinophils # (0-0.7) k/uL Basophils # (0-0.2) k/uL Hypochromasia Poikilocytosis Anisocytosis Microcytosis PT (9.0-12.0) sec INR (<1.2) APTT (22.0-30.0) sec Sodium 137 (137-145) mmol/L Potassium 3.8 (3.5-5.1) mmol/L Chloride 103 (98-107) mmol/L Carbon Dioxide 27 (22-30) mmol/L Anion Gap 7 mmol/L BUN 29 H (7-17) mg/dL Creatinine 1.01 (0.52-1.04) mg/dL Est GFR (CKD-EPI)AfAm 65 (>60 ml/min/1.73 sqM) Est GFR (CKD-EPI)NonAf 56 (>60 ml/min/1.73 sqM) Glucose 131 H (74-99) mg/dL Calcium 8.7 (8.4-10.2) mg/dL Magnesium 2.4 H (1.6-2.3) mg/dL Total Bilirubin 0.3 (0.2-1.3) mg/dL AST 18 (14-36) U/L ALT 18 (4-34) U/L Alkaline Phosphatase 83 (38-126) U/L Troponin I <0.012 (0.000-0.034) ng/mL Total Protein 6.7 (6.3-8.2) g/dL Albumin 3.4 L (3.5-5.0) g/dL Blood Type Blood Type Confirm O Positive Blood Type Recheck Bld Type Recheck Status Antibody Screen Spec Expiration Date - EKG Data EKG shows normal: sinus rhythm (ventricular rate 75, NH interval 0.144, QRS 0.90, QTC 0.449, normal axis) Disposition Clinical Impression: Anemia Disposition: HOME SELF-CARE Condition: Good Instructions (If sedation given, give patient instructions): Anemia (ED) Additional Instructions: Follow-up with your primary care doctor on Saturday. Return to the emergency room with any new or concerning symptoms including chest pain, difficulty in breathing or any abnormal bleeding. Is patient prescribed a controlled substance at d/c from ED?: No Referrals: Gill Melo MD [Primary Care Provider] - 1-2 days Time of Disposition: 23:11
[2022-07-27 22:15] LABS: Prothrombin Time 10.7 sec (9.0-12.0)
[2022-07-27 22:21] LABS: Albumin 3.4 g/dL (3.5-5.0); Calcium 8.7 mg/dL (8.4-10.2); Magnesium 2.4 mg/dL (1.6-2.3); Potassium 3.8 mmol/L (3.5-5.1); Total Bilirubin 0.3 mg/dL (0.2-1.3); Total Protein 6.7 g/dL (6.3-8.2)
[2022-07-27 22:22] LABS: Partial Thromboplastin Time 21.7 sec (22.0-30.0)
[2022-07-27] MEDS ORDERED: GLIMEPIRIDE 4 MG TAB PO SCH (22:30)
[2022-07-27] MEDS ORDERED: PANTOPRAZOLE 40 MG TABLET PO SCH (22:30)
[2022-07-27] MEDS ORDERED: LINAGLIPTIN 5 MG TABLET PO SCH (22:30)
[2022-07-27] MEDS ORDERED: PRAMIPEXOLE 0.5 MG TAB PO SCH (22:30)
[2022-07-27] MEDS ORDERED: INSULIN DETEMIR (LEVEMIR) 100 UNIT/ML SYR SQ SCH (22:30)
[2022-07-27] MEDS ORDERED: OXYBUTYNIN CHLORIDE 5 MG TAB PO SCH (22:30)
[2022-07-27] MEDS ORDERED: DAPAGLIFLOZIN PROPANEDIOL 10 MG TABLET PO SCH (22:30)
[2022-07-27] MEDS ORDERED: metFORMIN 500 MG TAB PO SCH (22:30)
[2022-07-27] MEDS ORDERED: GABAPENTIN 400 MG CAP PO SCH (22:30)
[2022-07-27 22:49] LABS: Anisocytosis Slight; Basophils # (A) 0.2 k/uL (0-0.2); Basophils % (A) 1 %; Eosinophils # (A) 1.2 k/uL (0-0.7); Eosinophils % (A) 8 %; HCT 28.1 % (34.0-46.0); HGB 7.5 gm/dL (11.4-16.0); Hypochromasia Marked; Lymphocytes # (A) 2.6 k/uL (1.0-4.8); Lymphocytes % (A) 18 %; MCH 16.3 pg (25.0-35.0); MCHC 26.7 g/dL (31.0-37.0); MCV 61.1 fL (80.0-100.0); Mean Platelet Volume 9.5; Microcytosis Marked; Monocytes # (A) 0.6 k/uL (0-1.0); Monocytes % (A) 4 %; Neutrophils # (A) 9.7 k/uL (1.3-7.7); Neutrophils % (A) 67 %; Platelet Count 469 k/uL (150-450); Poikilocytosis Slight; RBC 4.59 m/uL (3.80-5.40); RDW 17.1 % (11.5-15.5); WBC 14.5 k/uL (3.8-10.6)
[2022-07-27 23:38] VITALS: BP 116/55; PULSE 79
== END 2022-07-27 23:37 | disposition home or self-care (01) ==
LOC: EC 18:56
DX: D64.9 Anemia, unspecified (principal); E11.9 Type 2 diabetes mellitus without complications; I10 Essential (primary) hypertension; E07.9 Disorder of thyroid, unspecified; Z88.2 Allergy status to sulfonamides; Z79.82 Long term (current) use of aspirin; Z79.84 Long term (current) use of oral hypoglycemic drugs; Z79.899 Other long term (current) drug therapy
CPT/HCPCS: 36415; 80053; 83735; 84484; 85025; 85610; 85730; 86850; 86900; 86901; 93005; 99284

== ENCOUNTER → 2023-03-06 | Outpatient (CLI) | payer MEDICARE, OTHER ==
--- NOTE | 2023-03-06 12:10 | P.SLEEP ---
History of Present Illness DATE: 03/06/2023 CONSULTATION/NEW PATIENT EVALUATION HISTORY OF PRESENT ILLNESS/SLEEP-WAKE EVALUATION: 72-year-old lady had been evaluated in the sleep center for possible obstructive sleep apnea hypopnea syndrome. Patient has history of obstructive sleep apnea hypopnea syndrome diagnosed in [facility] in 2013. Patient was on treatment with CPAP, then sure CPAP unit was on recall, she received replacement part, but does not use her CPAP equipment for more than 2 years. Patient significantly lost weight from 221 pounds during previous sleep study to 187 pounds today. SLEEP SCHEDULE: Usually sleep schedule from 10 PM1 AM until 9 AM. FALLING ASLEEP: No problems with falling asleep. DURING SLEEP: Patient snores and wakes up from sleep 2 or more times. No history of hypnogogical hallucinations, sleep paralysis, or cataplexy. DURING THE DAY/WAKE STATE: Patient complains of significant excessive daytime sleepiness. [place] sleepiness scale is 20. Patient may take more than 2 naps during the day. PAST MEDICAL HISTORY: Hypertension, diabetes mellitus, acid reflux, hyperlipidemia, restless legs. PAST SURGICAL HISTORY: Bilateral knee replacement. MEDICATIONS: Metoprolol, metformin, omeprazole, pregabalin, Jardiance, naproxen. SOCIAL HISTORY: Negative for smoking or using alcohol. FAMILY HISTORY: Hypertension, hyperlipidemia, sleep apnea, diabetes. REVIEW OF SYSTEMS: Snoring, multiple awakenings from sleep, significant excessive daytime sleepiness. No fevers. No double vision. No recent chest pain. No shortness of breath. No abdominal pain. No bleeding episodes. No blood in urine. No seizure episodes. PHYSICAL EXAMINATION: GENERAL: A pleasant patient without any distress. VITAL SIGNS: BP 124/72 , HR 89 , RR 16 , weight 187.6 pounds, height 4 foot 11 inches, body mass index 37.7 . HEENT: PERRLA, EOMI. Evaluation of oropharynx showed tongue protrudes midline, low position of soft palate Mallampati 3. NECK: Supple. No JVD. Thyroid is not palpable. 16-1/4 inches in circumference. LUNGS: Clear to percussion and to auscultation. Good air exchange. No wheezing or rhonchi. HEART: S1, S2 regular. No murmurs, gallops or rubs. ABDOMEN: Soft and nontender. Bowel sounds are present. No organomegaly appreciated. EXTREMITIES: No clubbing or cyanosis. DEPUTY DIRECTOR OF NURSING: Awake, alert, and oriented x3. Cranial nerves 2 to 7 intact. There is no fasciculation or atrophy noted. No focal deficits observed. ASSESSMENT: 1. Snoring, multiple awakenings from sleep, low position of soft palate Mallampati 3, white neck 16-1/4 inches in circumference, sleepiness, history of obstructive sleep apnea in the past. Obstructive sleep apnea hypopnea syndrome. 2. Significant excessive daytime sleepiness with [place] Sleepiness Scale of 21 dictated necessity to include hypersomnia and narcolepsy and differential diagnosis. 3. Hypertension. 4. Diabetes mellitus. 5 acid reflux. 6 . Hyperlipidemia. 7. Restless leg syndrome. 8. Status post bilateral knee replacement. PLAN: 1. Polysomnography for evaluation of patient's breathing during sleep at the present time after patient lost weight. Multiple sleep latency test if sleep study will be negative for obstructive sleep apnea hypopnea syndrome. 2. CPAP/BiPAP titration if sleep study confirms obstructive sleep apnea- hypopnea syndrome. 3. Preferable position during sleep on the side. 4. No driving if patient feels any sleepiness. Patient is aware of civil and criminal liability for unsafe driving. 5. Sleep hygiene with regular sleep time for at least 7.5-8 hours. 6. Watching weight. Thank you very much for referring this patient for consultation. Sincerely, Kendell Lan MD, PhD, FAASM. Diplomat of [place] [employer], Sleep Medicine Board by [place] [employer] [employer] Felt Hat Flanging Operator of [facility] Past Medical History Past Medical History: Diabetes Mellitus, Hyperlipidemia, Hypertension, Thyroid Disorder Additional Past Medical History / Comment(s): RESTLESS LEGS History of Any Multi-Drug Resistant Organisms: None Reported Past Surgical History: Cholecystectomy, Joint Replacement, Tubal Ligation Additional Past Surgical History / Comment(s): SKIN CANCER REMOVAL, bilateral knee replacement Past Anesthesia/Blood Transfusion Reactions: No Reported Reaction Past Psychological History: No Psychological Hx Reported Smoking Status: Never smoker Past Alcohol Use History: None Reported Past Drug Use History: None Reported - Past Family History Father Family Medical History: Cancer Additional Family Medical History / Comment(s): skin cancer Mother Family Medical History: Deep Vein Thrombosis (DVT) Medications and Allergies Home Medications Medication Instructions Recorded Confirmed Type Magnesium Oxide [Mag-Ox] 400 mg PO DAILY 01/22/14 07/27/22 History Omeprazole [PriLOSEC] 20 mg PO HS 01/22/14 07/27/22 History atenoloL [Tenormin] 25 mg PO DAILY 01/22/14 07/27/22 History Linagliptin [Tradjenta] 5 mg PO HS 12/04/17 07/27/22 History oxyBUTYnin chloride [Ditropan] 10 mg PO BID 12/04/17 07/27/22 History Citalopram Hydrobromide 40 mg PO DAILY 08/05/18 07/27/22 History [Citalopram HBr] metFORMIN HCL [Glucophage] 1,000 mg PO HS 10/14/18 07/27/22 History Aspirin [Adult Low Dose Aspirin EC] 81 mg PO DAILY 09/21/21 07/27/22 History Insulin Glargine,Hum.rec.anlog 20 units SQ HS 09/21/21 07/27/22 History [Basaglar Kwikpen U-100] Chlorthalidone [Hygroton] 25 mg PO DAILY 10/27/21 07/27/22 History Empagliflozin [Jardiance] 25 mg PO HS 10/27/21 07/27/22 History Famotidine 20 mg PO DAILY 10/27/21 07/27/22 History Glimepiride [Amaryl] 4 mg PO BID 10/27/21 07/27/22 History Losartan Potassium 100 mg PO DAILY 10/27/21 07/27/22 History Naproxen [EC-Naproxen] 500 mg PO BID 10/27/21 07/27/22 History Pramipexole Di-HCl [Pramipexole 1.5 mg PO HS 10/27/21 07/27/22 History Dihydrochloride] Gabapentin [Neurontin] 800 mg PO BID 07/27/22 07/27/22 History Allergies Allergy/AdvReac Type Severity Reaction Status Date / Time sulfamethoxazole Allergy Rash/Hives Verified 07/27/22 22:07 [From Bactrim] trimethoprim [From Bactrim] Allergy Rash/Hives Verified 07/27/22 22:07 albuterol AdvReac jittery, Verified 07/27/22 22:07 hyper atorvastatin calcium AdvReac muscle Verified 03/17/23 22:07 [From Lipitor] cramps Sleep Note - Sleep Note Sleep Note: Temperature: Pulse Rate: Respiratory Rate: Blood Pressure: SpO2: Height: Weight: BMI: Neck Circumference:
== END ==
LOC: 3 N SLEEP 10:47
PROVIDERS: ATTEND Internal Medicine
DX: G47.33 Obstructive sleep apnea (adult) (pediatric) (principal); G47.10 Hypersomnia, unspecified; G47.419 Narcolepsy without cataplexy; I10 Essential (primary) hypertension; E11.9 Type 2 diabetes mellitus without complications; K21.9 Gastro-esophageal reflux disease without esophagitis; E78.5 Hyperlipidemia, unspecified; G25.81 Restless legs syndrome; Z96.653 Presence of artificial knee joint, bilateral; Z79.899 Other long term (current) drug therapy; Z79.84 Long term (current) use of oral hypoglycemic drugs; Z88.2 Allergy status to sulfonamides; Z88.1 Allergy status to other antibiotic agents; Z88.8 Allergy status to other drugs, medicaments and biological substances; Z79.4 Long term (current) use of insulin; Z79.82 Long term (current) use of aspirin
CPT/HCPCS: 99211

== ENCOUNTER 2023-04-24 19:26 | Outpatient (CLI) | payer MEDICARE, OTHER ==
--- NOTE | 2023-04-25 17:26 | P.PCN ---
Description of Procedure: POLYSOMNOGRAPHY REPORT PROCEDURE(S)/DATE(S): Polysomnography 04/24/2023 CLINICAL: Patient has been seen in the sleep center for evaluation of obstructive sleep apnea-hypopnea syndrome. Please see my consultation. Sleep study has been done for evaluation of patient breathing during the sleep. PROCEDURE: The standard montage for clinical polysomnography included the electroencephalogram, the electrooculogram, the mentalis surface electromyography and Lead II cardiography. The respiratory battery consisted of measurements of nasal/buccal air flow, pressure transducer measurements from nose, thoracic and/or abdominal effort and intercostal surface electromyography. Video monitoring has been done to check for any parasomnia events. Nocturnal oxyhemoglobin saturations were obtained by finger oximetry. Step-jennings titration with positive airway pressure was utilized to control the respiratory events, if necessary. RESULTS: During the diagnostic sleep study sleep efficiency was slightly decreased 82.5 %. Latency to sleep onset was normal 11.0 min. Sleep architecture showed stage NI was short 1.7 %, Delta sleep was normal 13.5 %, REM sleep was extremely short 2.2 %. Respiratory channel showed 0 obstructive apneas, 0 mixed apneas, 0 central apneas, 93 hypopneas with lowest oxygen level 77 %. Total apnea hypopnea index was 8.4. Heart rate was in the range between 67 and 79, average 72. EMG showed 0 periodic limb movements per hour. IMPRESSIONS: 1. Mild obstructive sleep apnea hypopnea syndrome. Patient presents with symptoms of significant excessive daytime sleepiness. [place] sleepiness scale is 19. 2. No significant periodic limb movements have been documented. Please see other impressions from consultation PLAN: 1. The patient will have AutoPAP treatment for correction of respiratory abnormalities during the sleep. 2. Losing weight program. 3. Sleep hygiene with regular time in bed for at least 7-1/2 hours. 4. No driving if feeling sleepiness. Thank you very much for allowing me to participate in the management of your patient. Sincerely, Kendell Lan MD, PhD, FAASM. Diplomat of [place] [employer] Medicine, Sleep Medicine Board by [place] [employer] Medicine Tacker Off of [facility] [place]
== END 2023-04-25 08:20 | disposition home or self-care (01) ==
LOC: 3 N SLEEP 19:26
PROVIDERS: ATTEND Internal Medicine
DX: G47.33 Obstructive sleep apnea (adult) (pediatric) (principal); G47.10 Hypersomnia, unspecified; Z88.2 Allergy status to sulfonamides; Z88.1 Allergy status to other antibiotic agents; Z88.8 Allergy status to other drugs, medicaments and biological substances
CPT/HCPCS: 95810

== ENCOUNTER → 2023-07-31 | Outpatient (CLI) | payer MEDICARE, OTHER ==
[2023-07-31 12:15] VITALS: BP 119/62; PULSE 57; RESP 16; TEMP 97.5
--- NOTE | 2023-07-31 12:38 | P.PN ---
Subjective DATE: 07/31/2023 FOLLOW UP VISIT. Patient with obstructive sleep apnea hypopnea syndrome return to sleep center for follow-up visit. Recently patient had sleep study which documented obstructive sleep apnea hypopnea syndrome. Patient was initiated on PAP therapy and today is first visit after treatment was started. Patient was able to use PAP equipment every night for the whole night. The patient does not have significant problems with the mask, PAP pressure and humidification. [place] sleepiness scale is significantly increased to 19. I checked information from PAP unit. PAP unit pressure 5-12, average 10.0 cm H2O. Usage is 93% and around 70% for more then 4 hours, average 4.75 hours per night. Leak is 10.3 l/m, which is in acceptable range. Apnea Hypopnea Index is 1.1, which is normal. MEDICATIONS:1. Metoprolol 2. Metformin 3. Omeprazole 4. Pregabalin 5. Jardiance 6. Naproxen During physical exam: GENERAL: A pleasant patient without any distress using walker. VITAL SIGNS: Please see below. HEENT: PERRLA, EOMI.low position of soft palate, Mallapati 3 . NECK: Supple. No JVD. LUNGS: Clear to percussion and to auscultation. Good air exchange. No wheezing or rhonchi. HEART: S1, S2 regular. ABDOMEN: Soft and nontender.[] EXTREMITIES: No clubbing or cyanosis. WATERMELON HARVESTING SUPERVISOR: Awake, alert, and oriented x3. No focal deficit. Impressions: 1. Obstructive sleep apnea-hypopnea syndrome. Patient demonstrated good compliance with treatment, benefiting from treatment. 2. Patient continued to feel significant sleepiness during the day [place] Sleepiness Scale is still in very high range of 19. Differential diagnosis include possibility of hypersomnia and narcolepsy. 3. Hypertension. 4. Diabetes mellitus. 5. Acid reflux. 6. Hyperlipidemia. 7. Status post bilateral knee replacement. Plan: 1. Continue using PAP equipment every night for the whole night. 2. To change air filter at least 1-2 times per month. 3. PAP unit should stay lower then position of the head. 4. Advised patient to remove all remaining water from humidifier canister daily and make it dry after each usage. Refill canister with fresh distilled water before each usage. 5. Sleep hygiene with regular time in bed for at least 8 hours. 6. Precautions related to driving. No driving if feel any sleepiness. 7. I will maintain prescription for PAP supplies including mask, tube, filters. 8. Multiple sleep latency test for objective fibrillation patient's symptoms of excessive daytime sleepiness. Test will be done after the night on CPAP 9. Watching weight. 10. Follow-up visit after multiple sleep latency test to discuss results of the test and recommendations. Thank you very much for allowing me to participate in the management of your patient. Kendell Lan MD, PhD, FAASM. Diplomat of [place] [employer] Medicine, Sleep Medicine Board by [place] [employer] Medicine Improvement Specialist of [facility] [place] Objective - Vital Signs Vital signs: Vital Signs Temp 97.5 F L 07/31/23 12:07 Pulse 57 L 07/31/23 12:07 Resp 16 07/31/23 12:07 BP 119/62 07/31/23 12:07 Pulse Ox 95 07/31/23 12:07 FiO2 Intake & Output 07/30/23 07/31/23 07/31/23 18:59 06:59 18:59 Weight 84.942 kg
== END ==
LOC: 3 N SLEEP 11:39
PROVIDERS: ATTEND Internal Medicine
DX: G47.33 Obstructive sleep apnea (adult) (pediatric) (principal); G47.10 Hypersomnia, unspecified; I10 Essential (primary) hypertension; K21.9 Gastro-esophageal reflux disease without esophagitis; E11.9 Type 2 diabetes mellitus without complications; E78.5 Hyperlipidemia, unspecified; Z96.653 Presence of artificial knee joint, bilateral; Z99.89 Dependence on other enabling machines and devices; Z88.2 Allergy status to sulfonamides; Z88.1 Allergy status to other antibiotic agents; Z88.8 Allergy status to other drugs, medicaments and biological substances; Z79.84 Long term (current) use of oral hypoglycemic drugs; Z79.899 Other long term (current) drug therapy; Z79.4 Long term (current) use of insulin
CPT/HCPCS: 99212

== ENCOUNTER 2023-09-29 19:39 | Outpatient (CLI) | payer MEDICARE, OTHER ==
[2023-10-01 18:32] LABS: Urine Alcohol Positive (Negative); Urine Barbiturate Negative (Negative); Urine Cocaine Negative (Negative); Urine Methadone Negative (Negative); Urine Opiates Negative (Negative); Urine Phencyclidine Negative (Negative)
--- NOTE | 2023-10-03 11:23 | P.PCN ---
Description of Procedure: CPAP titration 09/29/2023, multiple sleep latency test 10/08/2023. Titration with positive air pressure has been done for correction of respiratory abnormalities during sleep. DESCRIPTION OF PROCEDURE: The standard montage for clinical polysomnography included the electroencephalogram, the electrocardiogram, the mentalis surface kitty ctromyography and Lead II cardiography. The respiratory battery consisted of measurements of nasal /buccal air flow, pressure transducer measurements from the nose, thoracic and /or abdominal effort and intercostal surface electromyography. Video monitoring has been done to check for any parasomnia events. Nocturnal oxyhemoglobin saturations were obtained by finger oximetry. Step-jennings titration with positive airway pressure was utilized to control respiratory events. Raw data of sleep recording has been reviewed and is adequate. RESULTS: Sleep efficiency was decreased to 76.5%. Latency to sleep onset was in short range 7.5 minutes.]. Sleep architecture showed stage N1 was short 2.1%, Delta sleep was normal 8.8%, REM sleep was normal 26.9%. Heart rate was minimum 60 BPM, maximum 76 BPM, average 67 BPM. EMG showed 0 periodic limb movements per hour. PAP titration have been done with CPAP up to the pressure 15 cm H2O. Normal respiration on CPAP, total apnea hypopnea index per the night 0.2. Multiple sleep latency test have been done on the following day, consisted from 5 naps. Mean sleep latency is pathologically short only 1.0 minutes, no sleep onset REM periods have been documented. IMPRESSION: 1. Obstructive sleep apnea hypopnea syndrome on controle with PAP treatment. 2. No significant periodic limb movements have been documented. 3. Multiple sleep latency test confirmed pathological sleepiness in extremely short range 1.0 minutes. Differential diagnosis include narcolepsy and idiopathic hypersomnia. Please see other impressions from consultation. PLAN: 1. The patient will continue treatment with positive air pressure equipment with every night for the whole night. 2. Watching weight. 3. Sleep hygiene with regular time in bed for at least 8 hours. 4. No driving if feeling any sleepiness. 5. I will see the patient for follow up visit to explain the results of the test and following plan. Patient will be started on treatment with medication to prevent excessive sleepiness Thank you very much for allowing me to participate in the management of your patient. Sincerely, Kendell Lan MD, PhD, FAASM Diplomat of [place] [employer] Sleep Medicine Board of [place] Board of Internal Medicine Clearing Distribution Clerk of [facility] [place]
== END 2023-09-30 17:22 | disposition home or self-care (01) ==
LOC: 3 N SLEEP 19:39
PROVIDERS: ATTEND Internal Medicine
DX: G47.419 Narcolepsy without cataplexy (principal); G47.10 Hypersomnia, unspecified; Z88.2 Allergy status to sulfonamides; Z88.1 Allergy status to other antibiotic agents; Z88.8 Allergy status to other drugs, medicaments and biological substances
CPT/HCPCS: 80306; 95805; 95811

== ENCOUNTER → 2023-10-23 | Outpatient (CLI) | payer MEDICARE, OTHER ==
[2023-10-23 11:53] VITALS: BP 111/65; PULSE 70; RESP 16; TEMP 98.2
--- NOTE | 2023-10-23 12:23 | P.PROGSL ---
Subjective DATE: 10/23/2023 FOLLOW UP VISIT. Patient with obstructive sleep apnea hypopnea syndrome and very significant excessive daytime sleepiness recently patient had return to sleep center for follow-up visit. Information from previous visit have been reviewed. CPAP titration night with falling multiple sleep latency test. Multiple sleep latency test showed extremely short sleep latency only 1 minute. Patient continued to feel sleepiness during the day. [place] Sleepiness Scale is in very high range of 19 Patient is using PAP equipment every night for the whole night, getting PAP supplies in time. The patient does not have significant problems with the mask, PAP unit and humidification. I checked information from PAP unit. PAP unit pressure 5-12, average 10.5 cm H2O. Usage is 98% for more then 4 hours, average 5.1 hours per night. Leak is 9 l/m, which is in acceptable range. Apnea Hypopnea Index is 1.6, which is normal. MEDICATIONS reviewed, please see below. During physical exam: GENERAL: A pleasant patient without any distress. VITAL SIGNS: Please see below, weight 196 pounds, BMI 40.9. HEENT: PERRLA, EOMI.low position of soft palate, Mallapati 3 . NECK: Supple. No JVD. LUNGS: Clear to percussion and to auscultation. Good air exchange. No wheezing or rhonchi. HEART: S1, S2 regular. ABDOMEN: Soft and nontender. Obese EXTREMITIES: No clubbing or cyanosis. MACHINE FEED OPERATOR: Awake, alert, and oriented x3. No focal deficit. Impressions: 1. Obstructive sleep apnea-hypopnea syndrome. Patient demonstrated great compliance with treatment, benefiting from treatment. Normal respiration on CPAP. 2. Multiple sleep latency test confirmed pathological sleepiness. Mean sleep latency only 1 minute. Differential diagnosis includes idiopathic hypersomnia and narcolepsy. 3. Hypertension. 4. Diabetes mellitus. 5. Acid reflux. 6. Hyperlipidemia. 7. Status post bilateral knee replacement. 8. Obesity, BMI 40.9. Plan: 1. Continue using PAP equipment every night for the whole night. 2. Patient will be started on treatment with armodafinil 150 mg 1 time a day in the morning. 3. PAP unit should stay lower then position of the head. 4. Advised patient to remove all remaining water from humidifier canister daily and make it dry after each usage. Refill canister with fresh distilled water before each usage. 5. Sleep hygiene with regular time in bed for at least 8 hours. 6. Precautions related to driving. No driving if feel any sleepiness. 7. I will maintain prescription for PAP supplies including mask, tube, filters. 8. Follow up visit in 3 months or earlier if patient has any problems. 9. Watching and losing weight. Thank you very much for allowing me to participate in the management of your patient. Kendell Lan MD, PhD, FAASM. Diplomat of [place] Board [employer] Sleep Medicine, Sleep Medicine Board by [place] Board [employer] Internal Medicine Frame Expander of [facility] [place] Objective - Vital Signs Vital Signs: Vital Signs Temp 98.2 F 10/23/23 11:53 Pulse 70 10/23/23 11:53 Resp 16 10/23/23 11:53 BP 111/65 10/23/23 11:53 Pulse Ox 93 L 10/23/23 11:53 FiO2 Intake & Output 10/22/23 10/23/23 10/23/23 18:59 06:59 18:59 Weight 88.904 kg Home Medications: Home Medications Medication Instructions Recorded Confirmed Type Magnesium Oxide [Mag-Ox] 400 mg PO DAILY 01/22/14 10/23/23 History Omeprazole [PriLOSEC] 20 mg PO HS 01/22/14 10/23/23 History atenoloL [Tenormin] 25 mg PO DAILY 01/22/14 10/23/23 History Linagliptin [Tradjenta] 5 mg PO HS 12/04/17 10/23/23 History oxyBUTYnin chloride [Ditropan] 10 mg PO BID 12/04/17 10/23/23 History Citalopram Hydrobromide 40 mg PO DAILY 08/05/18 10/23/23 History [Citalopram HBr] metFORMIN HCL [Glucophage] 1,000 mg PO HS 10/14/18 10/23/23 History Aspirin [Adult Low Dose Aspirin EC] 81 mg PO DAILY 09/21/21 10/23/23 History Insulin Glargine,Hum.rec.anlog 20 units SQ HS 09/21/21 07/27/22 History [Basaglar Kwikpen U-100] Chlorthalidone [Hygroton] 25 mg PO DAILY 10/27/21 10/23/23 History Empagliflozin [Jardiance] 25 mg PO HS 10/27/21 10/23/23 History Famotidine 20 mg PO DAILY 10/27/21 07/27/22 History Glimepiride [Amaryl] 4 mg PO BID 10/27/21 10/23/23 History Losartan Potassium 100 mg PO DAILY 10/27/21 10/23/23 History Naproxen [EC-Naproxen] 500 mg PO BID 10/27/21 10/23/23 History Pramipexole Di-HCl [Pramipexole 1.5 mg PO HS 10/27/21 10/23/23 History Dihydrochloride] Gabapentin [Neurontin] 800 mg PO BID 07/27/22 10/23/23 History Ezetimibe [Zetia] 10 mg PO DAILY 10/23/23 10/23/23 History Ferrous Sulfate [Feosol] 325 mg PO DAILY 10/23/23 10/23/23 History Insulin Glargine,Hum.rec.anlog 32 units SQ HS 10/23/23 10/23/23 History [Tena Aguayo U-100] Loratadine [Claritin] 10 mg PO DAILY 10/23/23 10/23/23 History Potassium Chloride [Klor-Con M20] 20 meq PO DAILY 10/23/23 10/23/23 History SILVER sulfADIAZINE Cream 1 % TOPICAL DIRECTED 10/23/23 10/23/23 History [Silvadene 1% Cream]
== END ==
LOC: 3 N SLEEP 11:25
PROVIDERS: ATTEND Internal Medicine
DX: G47.33 Obstructive sleep apnea (adult) (pediatric) (principal); I10 Essential (primary) hypertension; E11.9 Type 2 diabetes mellitus without complications; K21.9 Gastro-esophageal reflux disease without esophagitis; E78.5 Hyperlipidemia, unspecified; E66.9 Obesity, unspecified; Z96.653 Presence of artificial knee joint, bilateral; Z99.89 Dependence on other enabling machines and devices; Z68.41 Body mass index [BMI] 40.0-44.9, adult; Z88.2 Allergy status to sulfonamides; Z88.1 Allergy status to other antibiotic agents; Z88.8 Allergy status to other drugs, medicaments and biological substances; Z79.899 Other long term (current) drug therapy; Z79.4 Long term (current) use of insulin; Z79.84 Long term (current) use of oral hypoglycemic drugs
CPT/HCPCS: 99212

== ENCOUNTER → 2023-12-11 | Outpatient (CLI) | payer MEDICARE, OTHER ==
--- NOTE | 2023-12-11 13:37 | MM ---
Reason for Exam: Screening (asymptomatic). Last mammogram was performed 1 year(s) and 6 month(s) ago. Patient History: Menarche at age 11. First Full-Term at age 19. Postmenopausal. Other cancer. Patient used Hormonal Contraceptives for 1 year. 2005, Benign Ultrasound-Guided Core Biopsy on the left side. Daughter had breast cancer, age 32. Risk Values: Juany 5 year model risk: 4.2%. NCI Lifetime model risk: 10.7%. Prior Study Comparison: 11/04/2018 Left Diagnostic Mammogram, [facility]. 02/19/2020 Bilateral Screening Mammogram, [facility]. 06/05/2022 Bilateral MG 3D screening mammo w/cad, [facility]. Tissue Density: There are scattered areas of fibroglandular density. Findings: Analyzed By CAD. There is no suspicious group of microcalcifications or new suspicious mass in either breast. Overall Assessment: Benign, BI-RAD 2 Management: Screening Mammogram of both breasts in 1 year. . Patient should continue monthly self-breast exams. A clinical breast exam by your physician is recommended on an annual basis. This exam should not preclude additional follow-up of suspicious palpable abnormalities. Note on Juany scores and lifetime risk: 1. A Juany score greater than 3% is considered moderate risk. If this is the case, consider specialist referral to assess eligibility for a risk reducing agent. 2. If overall lifetime risk for the development of breast cancer is 20% or higher, the patient may qualify for future screening with alternating mammogram and breast MRI. Electronically signed and approved by: Cristian Bryson M.D. Radiologis
== END | disposition home or self-care (01) ==
LOC: RADMAMWWP 11:06
PROVIDERS: ATTEND Family Medicine
DX: Z12.31 Encounter for screening mammogram for malignant neoplasm of breast (principal); R92.323 Mammographic fibroglandular density, bilateral breasts; Z78.0 Asymptomatic menopausal state; Z80.3 Family history of malignant neoplasm of breast
CPT/HCPCS: 77063; 77067

== ENCOUNTER → 2024-02-12 | Outpatient (CLI) | payer MEDICARE, OTHER ==
[2024-02-12 13:16] VITALS: BP 118/68; PULSE 70; RESP 16; TEMP 97.3
--- NOTE | 2024-02-12 14:02 | P.PROGSL ---
Subjective DATE: 02/12/2024 FOLLOW UP VISIT. Patient with obstructive sleep apnea hypopnea syndrome and possible narcolepsy return to sleep center for follow-up visit. Information from previous visit have been reviewed. Patient is using PAP equipment every night for the whole night, getting PAP supplies in time. The patient does not have significant problems with the mask, PAP unit and humidification. [place] sleepiness scale is slightly increased to 11. I checked information from PAP unit. PAP unit pressure 5-12, average 11 cm H2O. Usage is 100% for more then 4 hours, average 7.1 hours per night. Leak is 13 l/m, which is in acceptable range. Apnea Hypopnea Index is 4.3, which is normal. MEDICATIONS have been reviewed, please see below. During physical exam: GENERAL: A pleasant patient without any distress. VITAL SIGNS: Please see below, weight is 185 lbs. HEENT: PERRLA, EOMI.low position of soft palate, [place] 3. NECK: Supple. No JVD. LUNGS: Clear to percussion and to auscultation. Good air exchange. No wheezing or rhonchi. HEART: S1, S2 regular. ABDOMEN: Soft and nontender. EXTREMITIES: No clubbing or cyanosis. 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 No focal deficit. Impressions: 1. Obstructive sleep apnea-hypopnea syndrome. Patient demonstrated great compliance with treatment, benefiting from treatment. 2. Narcolepsy type II, multiple sleep latency test showed mean sleep latency only 1 minute. 3. Hypertension. 4. Diabetes mellitus. 5. Obesity, BMI 37.3, patient lost 11 pounds comparing with the previous visit. 6. Acid reflux. 7. Hyperlipidemia. 8. Status post bilateral knee replacement. Plan: 1. Continue using PAP equipment every night for the whole night. 2. Sleep hygiene with regular time in bed for at least 7.5-8 hours 3. PAP unit should stay lower then position of the head. 4. Advised patient to remove all remaining water from humidifier canister daily and make it dry after each usage. Refill canister with fresh distilled water before each usage. 5. Watching and continue losing weight. 6. Precautions related to driving. No driving if feel any sleepiness. 7. I will maintain prescription for PAP supplies including mask, tube, filters. 8. Follow up visit in 6 months or earlier if patient has any problems. Thank you very much for allowing me to participate in the management of your patient. Kendell Lan MD, PhD, FAASM. Diplomat of [place] [employer], Sleep Medicine Board by [place] [employer] Supervisor of [facility] [place] Objective - Vital Signs Vital Signs: Vital Signs Temp 97.3 F L 02/12/24 13:15 Pulse 70 02/12/24 13:15 Resp 16 02/12/24 13:15 BP 118/68 02/12/24 13:15 Pulse Ox 93 L 02/12/24 13:15 FiO2 Intake & Output 02/11/24 02/12/24 02/12/24 18:59 06:59 18:59 Weight 83.915 kg Home Medications: Home Medications Medication Instructions Recorded Confirmed Type Magnesium Oxide [Mag-Ox] 400 mg PO DAILY 01/22/14 02/12/24 History Omeprazole [PriLOSEC] 20 mg PO HS 01/22/14 02/12/24 History atenoloL [Tenormin] 25 mg PO DAILY 01/22/14 10/23/23 History Linagliptin [Tradjenta] 5 mg PO HS 12/04/17 02/12/24 History oxyBUTYnin chloride [Ditropan] 10 mg PO BID 12/04/17 10/23/23 History Citalopram Hydrobromide 40 mg PO DAILY 08/05/18 10/23/23 History [Citalopram HBr] metFORMIN HCL [Glucophage] 1,000 mg PO HS 10/14/18 02/12/24 History Aspirin [Adult Low Dose Aspirin EC] 81 mg PO DAILY 09/21/21 10/23/23 History Insulin Glargine,Hum.rec.anlog 20 units SQ HS 09/21/21 07/27/22 History [Basaglar Kwikpen U-100] Chlorthalidone [Hygroton] 25 mg PO DAILY 10/27/21 10/23/23 History Empagliflozin [Jardiance] 25 mg PO HS 10/27/21 02/12/24 History Famotidine 20 mg PO DAILY 10/27/21 07/27/22 History Glimepiride [Amaryl] 4 mg PO BID 10/27/21 10/23/23 History Losartan Potassium 100 mg PO DAILY 10/27/21 10/23/23 History Naproxen [EC-Naproxen] 500 mg PO BID 10/27/21 02/12/24 History Pramipexole Di-HCl [Pramipexole 1.5 mg PO HS 10/27/21 02/12/24 History Dihydrochloride] Gabapentin [Neurontin] 800 mg PO BID 07/27/22 02/12/24 History Ezetimibe [Zetia] 10 mg PO DAILY 10/23/23 02/12/24 History Ferrous Sulfate [Feosol] 325 mg PO DAILY 10/23/23 10/23/23 History Insulin Glargine,Hum.rec.anlog 32 units SQ HS 10/23/23 10/23/23 History [Tena Mcnallypen U-100] Loratadine [Claritin] 10 mg PO DAILY 10/23/23 02/12/24 History Potassium Chloride [Klor-Con M20] 20 meq PO DAILY 10/23/23 10/23/23 History SILVER sulfADIAZINE Cream 1 % TOPICAL DIRECTED 10/23/23 10/23/23 History [Silvadene 1% Cream] Citalopram Hydrobromide 40 mg PO DAILY 02/12/24 02/12/24 History [Citalopram HBr] Ezetimibe [Zetia] 10 mg PO DAILY 02/12/24 02/12/24 History Gabapentin [Neurontin] 800 mg PO BID 02/12/24 02/12/24 History Insulin Glargine,Hum.rec.anlog See Rx Instructions .ROUTE .COMPLEX 02/12/24 02/12/24 History [Isisaglar Reynoldikpen U-100] Linagliptin [Tradjenta] 5 mg PO DAILY 02/12/24 02/12/24 History Loratadine [Claritin] 10 mg PO DAILY 02/12/24 02/12/24 History Magnesium Oxide [Mag-Ox] 400 mg PO DAILY 02/12/24 02/12/24 History Metoprolol Succinate (ER) [Toprol 25 mg PO DAILY 02/12/24 02/12/24 History XL] Naproxen [EC-Naprosyn] 500 mg PO BID 02/12/24 02/12/24 History Omeprazole 20 mg PO DAILY 02/12/24 02/12/24 History Pramipexole Di-HCl [Pramipexole ER] 1.5 mg PO DAILY 02/12/24 02/12/24 History Spironolactone [Aldactone] 25 mg PO DAILY 02/12/24 02/12/24 History Torsemide [Demadex] 20 mg PO DIRECTED 02/12/24 02/12/24 History armodafiniL 150 mg PO QAM 02/12/24 02/12/24 History oxyBUTYnin chloride [Ditropan] 2.5 mg PO BID 02/12/24 02/12/24 History
== END ==
LOC: 3 N SLEEP 13:09
PROVIDERS: ATTEND Internal Medicine
CPT/HCPCS: 99212

== ENCOUNTER → 2024-02-25 | Outpatient (CLI) | payer MEDICARE, OTHER ==
[2024-02-25 15:12] LABS: HCT 45.3 % (37.2-46.3); HGB 14.3 g/dL (12.0-15.0); MCH 26.2 pg (27.0-32.0); MCHC 31.6 g/dL (32.0-37.0); Mean Platelet Volume 12.1 FL (9.5-12.2); NRBC Per 100 WBC 0 X 10*3/uL (0.00-0.01); Platelet Count 399 X 10*3/uL (140-440); RBC 5.46 X 10*6/uL (4.10-5.20); RDW 15.9 % (11.5-14.5); WBC 10.54 X 10*3/uL (4.50-10.00)
[2024-02-25 15:27] LABS: NT-Pro-B-Type Natriuretic Pept 64 pg/mL (0-125)
[2024-02-25 15:48] LABS: ALT 22 U/L (8-44); AST 19 U/L (13-35); Albumin 4.4 g/dL (3.8-4.9); Albumin/Globulin Ratio 1.33 Ratio (1.60-3.17); Alkaline Phosphatase 101 U/L (41-126); BUN/Creat Ratio 31.82 Ratio (12.00-20.00); Calcium 9.9 mg/dL (8.7-10.3); Carbon Dioxide 25.4 mmol/L (21.6-31.8); Chloride 101 mmol/L (96-109); Chol/HDL Ratio 3.61 Ratio; Globulin 3.3 g/dL (1.6-3.3); Glucose 142 mg/dL (70-110); LDL Cholesterol,Calculated 72.8 mg/dL (0.0-131.0); Potassium 4.3 mmol/L (3.5-5.5); Sodium 143 mmol/L (135-145); Total Bilirubin 0.2 mg/dL (0.3-1.2); Total Protein 7.7 g/dL (6.2-8.2)
== END | disposition home or self-care (01) ==
LOC: LABPAT 10:02
PROVIDERS: ATTEND Student in an Organized Health Care Education/Training Program
CPT/HCPCS: 36415; 80053; 80061; 83036; 83880; 84443; 85027

== ENCOUNTER → 2024-03-06 | Day surgery (SDC) | payer MEDICARE, OTHER ==
[~2024-03-06] MED LIST changes: -ACETAMINOPHEN TAB 500 MG TAB PO ONE; +ALPRAZolam 0.25 MG TAB PO PRN; +ALPRAZolam 0.5 MG TAB PO PRN; +ASPIRIN 325 MG TAB PO ONE; -DEXAMETHASONE SOD PHOSPHATE 10 MG/ML 1 ML VIAL IV ONE; -HYDROmorphone 0.5 MG/0.5 ML SYRINGE IVP PRN; -MELOXICAM 7.5 MG TAB PO ONE; -MIDAZOLAM 2 MG/2 ML VIAL IV PRN; +NITROGLYCERIN SL TABS 0.4 MG TAB SUBLINGUAL PRN; -ONDANSETRON 4 MG/2 ML VIAL IVP ONE; -ROPIVACAINE 246.25 MG, EPINEPHrine 0.5 MG, KETOROLAC 30 MG, cloNIDine HCL/PF 80 MCG, WA... MISCELLANE ONE; +RX INFO: IV CONTRAST WAS GIVEN 1 EACH MISC MISCELLANE PRN; +SODIUM CHLORIDE 0.9% 1,000 ML IV SCH; -TRANEXAMIC ACID 1,000 MG in SODIUM CHLORIDE 0.9% 100 ML IVPB ONE; -ceFAZolin IN SWFI 2 GM/20 ML SYRINGE IVP ONE
[2024-03-06 06:28] VITALS: RESP 18; TEMP 97.3
[2024-03-06 06:28] LABS: Glucose,Whole Blood 171 mg/dL (70-110)
[2024-03-06] MEDS: SODIUM CHLORIDE 0.9% 1,000 ML in EMPTY BAG 1 BAG IV SCH (06:34)
[2024-03-06] MEDS: IV FLUID CONTINUATION 1,000 ML IV ONE (07:03)
[2024-03-06] MEDS: HEPARIN SODIUM,PORCINE (1 ML) 2,500 UNIT in SODIUM CHLORIDE 0.9% 250 ML IRRIGATION PRN (07:44)
[2024-03-06] MEDS: HEPARIN SODIUM,PORCINE 10,000 UNIT in SODIUM CHLORIDE 0.9% 1,000 ML IRRIGATION PRN (07:44)
[2024-03-06] MEDS: MIDAZOLAM 2 MG/2 ML VIAL IVP ONE (07:48)
[2024-03-06] MEDS: fentaNYL (PF) 50 MCG/ML 2 ML AMP IVP ONE (07:48)
[2024-03-06] MEDS: LIDOCAINE 1% INJ 10MG/ML (20 ML MDV) SQ ONE (07:48)
[2024-03-06] MEDS: VERAPAMIL 2.5 MG/ML 2 ML AMP INTRAARTER ONE (07:50)
[2024-03-06] MEDS: HEPARIN SODIUM 1,000 UN/ML (10ML VL) IV ONE (07:56)
[2024-03-06] MEDS: IOPAMIDOL-370 100ML BTL INJ ONE ×2 (08:15→08:27)
--- NOTE | 2024-03-06 08:41 | P.CARDCATH ---
Date of Procedure: 03/06/24 Description of Procedure: DIAGNOSTIC CORONARY ANGIOGRAPHY and LEFT HEART CATH REPORT PROCEDURES PERFORMED: Left heart catheterization Selective coronary angiography Moderate conscious sedation 40 mins Right radial access INDICATION: Abnormal stress test with reversible portion defect in anterolateral wall CONSENT: I have explained the procedural steps of above-mentioned procedures in layman's terms to the patient. I discussed the risks (including but not limited to stroke, emergent vascular or cardiac surgery or ), benefits and alternative therapies for the above-mentioned procedure. I discussed the risks of sedation/analgesia and blood product administration (if indicated). The patient has indicated understanding and acceptance of these risks. Conscious Sedation: Patient's ECG, heart rate, blood pressure, pulse oximetry were monitored throughout the duration of procedure under my direct supervision. [2] mg Versed and [50] mcg Fentanyl were used for induction of moderate conscious sedation. Total duration of moderate concious sedation 40 minutes. PROCEDURE: After explaining the risks, benefits and alternatives of the above mentioned procedures in detail to the patient, informed consent was obtained. Patient was taken to the catheterization lab, prepped and draped in usual sterile fashion using universal precuations. Ultrasound was used to identify the radial artery. 1% lidocaine was infiltrated over the right radial artery. A 6-[place] sheath was placed and secured in the right radial artery using modified Seldinger technique. The sheath was flushed and 5 mg verapamil was administered intra-arterially. J tipped wire was advanced under fluoroscopic guidance. Once the wire tip reached aortic root 5000 units of IV heparin was given. Over the wire JR4 diagnostic catheter was advanced. The wire in place the catheter was manipulated to cross the aortic valve and entered into LV under fluoroscopy guidance. The wire was removed and the catheter was flushed. LV pressures were obtained and pullback was performed under fluoroscopy. Catheter was manipulated to selectively engage the right coronary ostium. The catheter could not engage the right coronary ostium. This was exchanged for a Yvon catheter, Hope catheter, JR 5 and AL 2 catheter. All this catheter could not engage the right coronary ostium selectively. This was exchanged for a pigtail catheter and the pigtail catheter was placed in the right coronary cusp. Nonselective shot of right coronary artery was obtained using the aortic root angiogram using a pigtail catheter using 12/36 setting. The JR4 diagnostic catheter was exchanged for a JL 3.5 diagnostic catheter over the J-wire. This was exchanged for a Yvon catheter the wire was removed, catheter was flushed and manipulated under fluoroscopy to selectively engaged the left coronary ostium. Left coronary angioplasty was performed in different angiographic projections. Catheter was removed over the wire. Radial sheath was flushed. The right radial sheath was removed and a TR band was placed with excellent patent hemostasis was achieved. The patient tolerated the procedure well. Patient was transported back to the post catheterization holding area in stable condition. Angiographic images were reviewed in detail. HEMODYNAMICS: Aortic Pressure: 125/70 mmHg. LV pressure: 130/10 mmHg. LVEDP 18 mmHg. There was no significant gradient across the aortic valve. SELECTIVE CORONARY ARTERIOGRAPHY: Short aortic root. 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 LEFT MAIN: The left main is short and large caliber vessel. It bifurcates into the LAD and circumflex. Left main appears angiographically normal. LEFT ANTERIOR DESCENDING CORONARY ARTERY: LAD is a large caliber vessel which wraps around to the apex. Proximal LAD appears angiographically normal. Mid LAD appears angiographically normal. Distal LAD appears angiographically normal. LEFT CIRCUMFLEX CORONARY ARTERY: It is nondominant vessel. Left circumflex is a moderate caliber vessel. It appears angiographically normal. 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 Dominant vessel. The right coronary artery is a large caliber vessel which gives PDA and PLV branch. It appears angiographically normal. IMPRESSION: Angiographically normal coronary arteries as described above. Mildly elevated LVEDP PLAN: Aggressive risk factor modification per most recent ACC/AHA guidelines. 125 cc fluids for 4 hours Discharge home in 4 hours Follow-up in the office in 1-2 weeks. Performing Physician Danyel Dodd MD, FACC, RPVI Thank you for allowing [facility] to participate in this patient's care. Feel free to reach out in case of any followup questions.
[2024-03-06 11:15] VITALS: PULSE 66
[2024-03-06 11:19] VITALS: BP 97/55
== END ==
LOC: CATHCVL 05:50
PROVIDERS: ATTEND Student in an Organized Health Care Education/Training Program
DX: R94.39 Abnormal result of other cardiovascular function study (principal); R07.9 Chest pain, unspecified; I10 Essential (primary) hypertension; E11.9 Type 2 diabetes mellitus without complications; E66.01 Morbid (severe) obesity due to excess calories; G47.33 Obstructive sleep apnea (adult) (pediatric); G89.29 Other chronic pain; Z79.4 Long term (current) use of insulin; Z79.84 Long term (current) use of oral hypoglycemic drugs; Z79.899 Other long term (current) drug therapy
CPT/HCPCS: 93458; 99152; 99153; C1769 ×2; C1894; J2250; J1644 ×3; J2003; J3010; Q9967